=== PATIENT | male | born 1955 | race Caucasian/White ===

== ENCOUNTER 2018-08-14 19:08 | Emergency (ER) | payer BC, SELFPAY ==
[2018-08-14 19:16] VITALS: BP 142/65; PULSE 90; RESP 28; TEMP 36.6; O2SAT 96; BMI 45.4
--- NOTE | 2018-08-14 19:18 | ED.CHESTPAIN ---
HPI - Chest Pain General Chief Complaint: Chest Pain Stated Complaint: Chest Pain Time Seen by Provider: 08/14/18 19:18 Source: patient Mode of arrival: ambulatory Limitations: no limitations History of Present Illness HPI narrative: Patient is a 63-year-old male here for evaluation of epigastric chest discomfort and burning sensation off and on throughout today. He states that his chest discomfort was worsening as he went over bumps on the way here to the emergency department. Not worse with breathing. Is worse with palpation. Has not tried anything for the symptoms prior to arrival. Related Data Previous Rx's Medication Instructions Recorded cyclobenzaprine 10 mg PO Q8HP PRN #20 tab 05/03/17 hydrocodone-acetaminophen [[place]] 1 - 2 tab PO Q4H PRN #12 tab 05/03/17 prednisone 40 mg PO QDAY #8 tab 05/03/17 Allergies Allergy/AdvReac Type Severity Reaction Status Date / Time Penicillins [PENICILLINS] Allergy Unknown Verified 08/14/18 19:16 Review of Systems Constitutional Denies fever(s) and Denies headache(s) ENT Ears, Nose, Mouth, and Throat: Reports dizziness and Denies headache(s) Cardiovascular Reports chest pain, Denies rapid heart rate, Denies edema, Reports lightheadedness, Denies radiating jaw, neck or arm pain, Denies palpitations, Denies dyspnea and Denies dyspnea on exertion Respiratory Denies dyspnea and Denies dyspnea on exertion Gastrointestinal Gastrointestinal: Denies abdominal pain, Denies nausea and Denies vomiting Musculoskeletal Denies myalgias and Denies arthralgias Integumentary/Breasts Denies rash Neurologic Reports dizziness and Denies headache(s) Endocrine Denies palpitations Hematologic/Lymphatic Denies easy bleeding and Denies easy bruising [facility] Medical History Parkinsons disease (Acute) Social History Smoking Status: Current every day smoker Social History Smoking Status: Current every day smoker Exam Initial Vital Signs Initial Vital Signs: Vital Signs Temperature 97.9 F 08/14/18 19:16 Pulse Rate 90 08/14/18 19:16 Respiratory Rate 28 H 08/14/18 19:16 Blood Pressure 142/65 H 08/14/18 19:16 Pulse Oximetry 96 08/14/18 19:16 Const General: cooperative, healthy appearing, comfortable, well developed, well groomed and No acute distress Orientation: alert, awake and oriented x3 HENMT Head: normal to inspection and normocephalic Resp Effort & Inspection: normal respiratory effort Auscultation: clear to auscultation bilaterally Cardio Rate: regular rate Rhythm: regular rhythm Pulses: radial pulses present GI Inspection: non-distended Palpation: soft, No firm and tender (Epigastric region) Other: The tenderness to palpation in the epigastric region did reproduce the symptoms that brought him to the emergency department Skin Lesions: no lesions Rashes: no rashes Neuro General: alert, awake and oriented x3 Cognition: normal cognition Speech: speech normal Extrem General: normal to inspection and capillary refill normal Psych Appearance: grossly normal and well kempt Scores GCS [place] coma scale eye opening: Spontaneous [place] coma scale verbal response: Orientated [place] coma scale motor response: Obey commands [place] coma scale total score: 15 HEART Score Heart Score history: Slightly Suspicious Heart Score EKG: Non-Specific repolarization disturbance Heart Score Age: 45-64 years old Heart Score risk factors: No known risk factors Heart Score troponin: < or = to normal limit Heart Score Total: 2 Course Orders Ordered: Discontinued Medications Aspirin (Aspirin Chew) 324 mg PO NOW ONE Stop: 08/14/18 19:20 Last Admin: 08/14/18 19:41 Dose: 324 mg Al Hydrox/Mg Hydrox/Simethicone 20 ml/ Lidocaine HCl 15 ml 0 ml PO NOW ONE Stop: 08/14/18 19:53 Last Admin: 08/14/18 20:00 Dose: 35 ml Vital Signs - 8 hr 08/14/18 21:36 08/14/18 21:40 Pulse Rate 88 81 Respiratory Rate 21 18 Blood Pressure 121/67 Blood Pressure [Left Arm] 121/67 Pulse Oximetry 98 96 MDM - Chest Pain Lab Data Attestation: I reviewed the patient's lab results. Result diagrams: 08/14/18 19:30 08/14/18 19:30 Lab Results 08/14/18 08/14/18 08/14/18 Range/Units 19:30 19:30 19:30 WBC 10.6 (4.5-11.0) X10^3/uL RBC 4.79 (4.5-5.9) X10^6/uL Hgb 15.1 (13.5-17.5) g/dL Hct 44.6 (41-53) % MCV 93.2 (80-100) fL MCH 31.6 (26-34) PG MCHC 33.9 (30-36) % RDW 13.4 (11.6-14.8) % Plt Count 201 (150-400) X10^3/uL Neut % (Auto) 66.8 (50-75) % Lymph % (Auto) 24.4 L (25-40) % [place] % (Auto) 6.3 (3-14) % Eos % (Auto) 2.0 (2-4) % Baso % (Auto) 0.5 (0-2) % Neut # (Auto) 7100 H (2265-4816) /uL Lymph # (Auto) 2600 (4686-7222) /uL [place] # (Auto) 700 (0-900) /uL Eos # (Auto) 200 (0-450) /uL Baso # (Auto) 100 (0-100) /uL PT 10.8 (10.1-12.7) SECONDS INR 0.9 (0.9-1.3) APTT 35 (26.4-36.2) SECONDS Sodium 140 (137-145) mmol/L Potassium 4.0 (3.4-5.1) mmol/L Chloride 103 (98-107) mmol/L Carbon Dioxide 28 (22-32) mmol/L BUN 22 H (9-20) mg/dL Creatinine 0.90 (0.66-1.25) mg/dL Estimated GFR > 60.0 (>60) mL/min BUN/Creatinine Ratio 24.4 H (6-22) Glucose 108 (80-110) mg/dL Calcium 9.4 (8.4-10.2) mg/dL Total Bilirubin 0.9 (0.2-1.3) mg/dL AST 151 H (17-59) IU/L ALT 13 L (21-72) IU/L Alkaline Phosphatase 107 (38-126) U/L Total Creatine Kinase 212 H (55-170) U/L CK-MB (CK-2) 2.66 H (<2.37) ng/mL CK-MB (CK-2) Rel Index 1.3 L (1.5-5.0) % Troponin I < 0.012 (0.01-0.034) ng/mL Total Protein 8.0 (6.3-8.2) g/dL Albumin 4.8 (3.5-5.0) g/dL Globulin 3.2 (1.7-4.1) g/dL Albumin/Globulin Ratio 1.5 (1.0-2.8) Lipase 78 (23-300) U/L Imaging Data Chest x-ray: Radiologist's impression: [address] [address] XRay Report Signed Patient: Mychal German LMR#: [id number] : 7Acct:[id number] Age/Sex: 63 / MDate of Service: 08/14/18 Loc: ED Accession Number: [id number] Procedure: XR chest 1V Ordering Provider: Nithin Galo D.O. PROCEDURE: XR CHEST 1V INDICATIONS: chest pain TECHNIQUE: One view of the chest was acquired. COMPARISON: None. FINDINGS: Surgical changes and devices: None. Lungs and pleura: Lungs are clear. No pleural effusions or pneumothorax. Mediastinum: Mediastinal contours appear normal. Heart size is normal. Bones and chest wall: No suspicious bony lesions. Overlying soft tissues appear unremarkable. IMPRESSION: No evidence acute pulmonary process. Dictated by: Dejuan Landa M.D. on 08/14/2018 at 21:28 Approved by: Dejuan Landa M.D. on 08/14/2018 at 21:28 ECG Data Attestation: I personally reviewed and interpreted this ECG as follows: Prior ECG tracings: not available for review Interpretation: EKG with symptoms Sinus rhythm with 1st degree AV block Ventricular rate 87 Peer interval 211 milliseconds QRS duration 113 milliseconds Normal axis Nonspecific ST T wave changes EKG symptom-free Sinus rhythm Ventricular rate 85 Pure interval 206 milliseconds QRS duration 111 milliseconds Normal axis Nonspecific ST T wave changes Similar EKGs with and without symptoms MDM Narrative Medical decision making narrative: Patient stated that his symptoms were improving upon arrival here to the ER. They were reproducible with palpation. He did state that he did have improvement of symptoms after the GI cocktail. Patient had an unchanged EKG from when he was having symptoms upon arrival and when the symptoms completely resolved. Chest x-ray is unremarkable. Heart score 2. I did discuss the patient that we could obtain a 2nd troponin here in the emergency department to further risk stratify him with regard to cardiovascular disease. After this discussion with the patient's daughter and at bedside the patient decided he did not want to stay for the 2nd troponin. He did express understanding of the risks and benefits of that 2nd troponin and going home without it. Informed the patient that he should start taking an antacid such as Zantac. He is going to contact his primary doctor on Friday for follow-up. He was given strict return precautions and was informed he could return to the emergency department any time. With he and his expressed understanding agreement plan. Patient had a GCS of 15 and alert oriented x3 and in my opinion had the capacity to make decisions. Discharge Plan Departure Patient Disposition: Home Clinical Impression: Atypical chest pain Discharge Date/Time: 08/14/18 21:41 Interventions: ED Discharge Assessment Last Done: 08/14/18 21:40 Instructions: DI for Atypical Chest Pain Activity Restrictions/Additional Instructions: I recommend that you continue taking an aspirin on a daily basis. On Friday you needed contact your primary care provider to discuss the indications for a stress test. I also recommend you start taking Zantac on a daily basis. Return to the emergency department for any new or worsening symptoms. Prescriptions: No Action prednisone 20 MG tablet 40 mg PO QDAY Qty: 8 RF: 0 cyclobenzaprine 10 MG tablet 10 mg PO Q8HP PRNQty: 20 RF: 0 hydrocodone-acetaminophen [[place]] 5 MG/325 MG tablet 1 - 2 tab PO Q4H PRNQty: 12 RF: 0
[2018-08-14 19:35] LABS: Add Manual Diff / Slide Review NO; Basophils Absolute Auto 100 /uL (0-100); Basophils Percent Auto 0.5 % (0-2); Eosinophils Absolute Auto 200 /uL (0-450); Hematocrit 44.6 % (41-53); Hemoglobin 15.1 g/dL (13.5-17.5); Lymphocytes Absolute Auto 2600 /uL (1100-4500); Lymphocytes Percent Auto 24.4 % (25-40); Mean Corpuscular HGB Conc 33.9 % (30-36); Mean Corpuscular Hemoglobin 31.6 PG (26-34); Mean Corpuscular Volume 93.2 fL (80-100); Monocytes Absolute Auto 700 /uL (0-900); Monocytes Percent Auto 6.3 % (3-14); Neutrophils Absolute Auto 7100 /uL (1500-7000); Neutrophils Percent Auto 66.8 % (50-75); Platelet Count 201 X10^3/uL (150-400); Red Blood Cell Count 4.79 X10^6/uL (4.5-5.9); Red Cell Distribution Width 13.4 % (11.6-14.8); White Blood Cell Count 10.6 X10^3/uL (4.5-11.0)
[2018-08-14] MEDS: ASPIRIN 81 MG TAB 324 MG PO (19:41)
--- NOTE | 2018-08-14 19:44 | PC.NURSE ---
reports chest pain going away, no other change in quality of pain reported. Provider at bedside
[2018-08-14 19:46] LABS: INR 0.9 (0.9-1.3); Prothrombin Time 10.8 SECONDS (10.1-12.7)
[2018-08-14 19:48] LABS: PTT Partial Thromboplastin Tim 35 SECONDS (26.4-36.2)
[2018-08-14 19:53] LABS: Alanine Aminotransferase 13 IU/L (21-72); Albumin 4.8 g/dL (3.5-5.0); Albumin Globulin Ratio 1.5 (1.0-2.8); Alkaline Phosphatase 107 U/L (38-126); Aspartate Aminotransferase 151 IU/L (17-59); BUN Creatinine Ratio 24.4 (6-22); Bilirubin Total 0.9 mg/dL (0.2-1.3); Blood Urea Nitrogen 22 mg/dL (9-20); Calcium 9.4 mg/dL (8.4-10.2); Carbon Dioxide 28 mmol/L (22-32); Chloride 103 mmol/L (98-107); Creatine Kinase 212 U/L (55-170); Estimated Glomerular Filt Rate > 60.0 mL/min (>60); Globulin 3.2 g/dL (1.7-4.1); Glucose 108 mg/dL (80-110); Lipase 78 U/L (23-300); Sodium 140 mmol/L (137-145)
[2018-08-14] MEDS: MAG HYDROX/ALUMINUM/SIMETH SUS 20 ML, LIDOCAINE VISCOUS 2% 15 ML PO (20:00)
[2018-08-14 20:02] LABS: Troponin I < 0.012 ng/mL (0.01-0.034)
[2018-08-14 20:08] LABS: CKMB % Relative Index 1.3 % (1.5-5.0); Creatine Kinase MB 2.66 ng/mL (<2.37); HEMOLYSIS 18 (0-50)
--- NOTE | 2018-08-14 20:12 | PC.NURSE ---
Pt reports no change in quantity or quality of pain after gicocktail.
[2018-08-14 20:31] VITALS: BP 111/78; PULSE 88
--- NOTE | 2018-08-14 21:12 | PC.NURSE ---
pt refusing second troponin, wants to go home. Provider notified and aknowledged information
[2018-08-14 21:36] VITALS: BP 121/67; PULSE 88; RESP 21; O2SAT 98
[2018-08-14 21:40] VITALS: BP 121/67; PULSE 81; RESP 18; O2SAT 96
== END 2018-08-14 21:41 | disposition home or self-care (01) ==
PROVIDERS: Emergency Provider Emergency Medicine
DX: R07.89 Other chest pain (principal)
CPT/HCPCS: 36591; 71045; 80053; 82550; 82553; 83690; 84484; 85025; 85610; 85730; 93005; 99283; 99285

== ENCOUNTER → 2020-06-27 13:03 | Outpatient (CLI) | payer BC, SELFPAY ==
[2020-06-27] MEDS: COVID-19 VACC #1, MRNA(MOD) 100 MCG/0.5 ML VIAL IM (13:13)
== END ==
PROVIDERS: Visit Provider Internal Medicine
DX: Z23 Encounter for immunization (principal)
CPT/HCPCS: 0011A; 91301

== ENCOUNTER → 2020-07-26 08:00 | Outpatient (CLI) | payer BC, SELFPAY ==
[2020-07-26] MEDS: COVID-19 VACC #2, MRNA(MOD) 100 MCG/0.5 ML VIAL IM (08:17)
== END ==
PROVIDERS: Visit Provider Internal Medicine
DX: Z23 Encounter for immunization (principal)
CPT/HCPCS: 0012A; 91301

== ENCOUNTER 2021-11-24 18:12 | Observation (INO) | payer BC, SELFPAY ==
[2021-11-24 18:45] VITALS: BP 137/77; PULSE 118; RESP 24; TEMP 36.4; O2SAT 100
--- NOTE | 2021-11-24 19:03 | ED_ITS ---
HPI - Nausea/Vomiting/Diarrhea General Chief complaint: Nausea/Vomiting/Diarrhea Stated complaint: post op complications/unable to urinatte/vomitting Time Seen by Provider: 11/24/21 18:57 Source: patient and family Mode of arrival: Ambulatory History of Present Illness HPI Narrative: Patient is a 66-year-old male. Has a history of atrial fibrillation and also Parkinson's disease. Is on anticoagulation. 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 This was done at the [facility]. He was discharged home yesterday. His postoperative course was complicated by a bowel obstruction that was treated nonoperatively with an NG-tube. After returning home yesterday he started to have nausea and vomiting which has continued throughout today. He also states he feels like he is not urinating. He feels like his abdomen is distended. No fevers. No specific change in abdominal discomfort. Related Data Home Medications Medication Instructions Recorded Confirmed amlodipine 2.5 mg tablet 2.5 mg PO QPM 11/25/21 11/25/21 apixaban 5 mg tablet (Eliquis) mg PO ONCE PM 11/25/21 atorvastatin 40 mg tablet 40 mg PO BEDTIME 11/25/21 11/25/21 carbidopa 25 mg-levodopa 100 mg 1.5 tab PO QID 11/25/21 11/25/21 tablet carbidopa ER 50 mg-levodopa 200 mg 1 tab PO BEDTIME 11/25/21 11/25/21 tablet,extended release entacapone 200 mg tablet 200 mg PO 5XD 11/25/21 11/25/21 lisinopril 20 mg tablet 20 mg PO BEDTIME 11/25/21 11/25/21 omeprazole 25 mg PO 2XD 11/25/21 11/25/21 pramipexole 0.25 mg tablet 0.25 mg PO 4XD 11/25/21 11/25/21 pramipexole 1.5 mg tablet 0.5 mg PO BEDTIME 11/25/21 11/25/21 rasagiline 1 mg tablet 1 mg PO DAILY 11/25/21 11/25/21 sertraline 25 mg tablet 25 mg PO BEDTIME 11/25/21 11/25/21 Allergies Allergy/AdvReac Type Severity Reaction Status Date / Time Penicillins [PENICILLINS] Allergy Unknown Verified 11/24/21 18:47 Review of Systems Review of Systems ROS Unobtainable: All systems reviewed & are unremarkable except as noted in HPI and below Patient History Medical History Atrial fibrillation Parkinsons disease Social History household members: spouse Smoking Status: Former smoker Smoking Status: Former smoker tobacco type: cigarettes alcohol intake frequency: 0-2 drinks per day Substance Use Type: does not use Exam Initial Vital Signs Initial Vital Signs: Vital Signs Temperature 97.5 F L 11/24/21 18:45 Pulse Rate 118 H 11/24/21 18:45 Respiratory Rate 24 11/24/21 18:45 Blood Pressure 137/77 11/24/21 18:45 Pulse Oximetry 100 11/24/21 18:45 Oxygen Delivery Method 11/24/21 18:45 Const General: cooperative and comfortable HENMT Head: normal to inspection and normocephalic Eyes General: Yes appearance normal, both eyes and all related structures Chest Chest: normal inspection of the chest Resp Effort & Inspection: normal respiratory effort Auscultation: clear to auscultation bilaterally Cardio Rate: tachycardic Rhythm: abnormal rhythm GI Inspection: distended Palpation: No firm, No guarding and tender Skin Other: Surgical scar left-sided abdomen that appears well without signs of infection. Neuro General: patient alert, patient awake, patient oriented x3 and moves all extremities Extrem General: normal to inspection and capillary refill normal Psych Appearance: grossly normal and well kempt Course Orders Ordered: ED Orders 11/24/21 19:04 CT abdomen pelvis w con Stat 11/24/21 19:15 Complete Blood Count AUTO DIFF Stat Comprehensive Metabolic Panel Stat Lactate (Lactic Acid) Stat Lipase Stat Procalcitonin Stat 11/24/21 19:17 COVID19 -Nasal RAPID/Pre-Proc Stat 11/24/21 19:53 Blood Culture Stat Acetaminophen (Acetaminophen 325 Mg Tablet) 650 mg PO Q6HR PRN PRN Reason: Fever/Mild Pain (1-3) Hydromorphone HCl (Hydromorphone 0.5 Mg Inj) 0.5 mg IV Q4H PRN PRN Reason: Breakthrough pain only (8-10) Sodium Chloride (Normal Saline 0.9%) 1,000 mls @ 100 mls/hr IV CONT AKILA Last Admin: 11/25/21 01:53 Dose: 100 mls/hr Documented By: MS Metronidazole (Flagyl) 500 mg in 100 mls @ 100 mls/hr IV Q8H [facility] Stop: 11/28/21 23:29 Last Admin: 11/25/21 02:41 Dose: 100 mls/hr Documented By: MS Cefazolin Sodium/Dextrose (Ancef) 100 mls @ 200 mls/hr IV Q8H [facility] Stop: 11/25/21 08:29 Last Infusion: 11/25/21 02:25 Dose: 0 mls/hr Documented By: Admin: 11/25/21 01:55 Dose: 200 mls/hr Documented By: MS Ketorolac Tromethamine (Ketorolac 30 Mg/Ml Vial) 30 mg IV Q6H PRN PRN Reason: Pain, Moderate (4-6) Stop: 11/27/21 23:14 Naloxone HCl (Naloxone 0.4 Mg/Ml Vial) 0.1 mg IV Q2MIN PRN PRN Reason: Opiate Reversal Ondansetron HCl (Ondansetron 4 Mg/2 Ml Inj) 4 mg IV Q4HR PRN PRN Reason: Nausea And Vomiting Pantoprazole Sodium (Pantoprazole 40 Mg Vial) 20 mg IV BID AKILA Discontinued Medications Sodium Chloride (Normal Saline 0.9%) 1,000 mls @ 500 mls/hr IV BOLUS ONE Stop: 11/24/21 21:02 Last Infusion: 11/24/21 21:30 Dose: 0 mls/hr Documented By: Admin: 11/24/21 19:11 Dose: 500 mls/hr Documented By: CANDE Cefazolin Sodium/Dextrose (Ancef) 100 mls @ 200 mls/hr IV Q8H [facility] Stop: 11/25/21 07:47 Last Admin: 11/24/21 23:36 Dose: Not Given Documented By: CANDE Ondansetron HCl (Ondansetron 4 Mg/2 Ml Inj) 4 mg IV NOW ONE Stop: 11/24/21 18:50 Last Admin: 11/24/21 19:10 Dose: 4 mg Documented By: CANDE Pantoprazole Sodium (Pantoprazole 40 Mg Vial) 40 mg IV NOW ONE Stop: 11/24/21 23:15 Last Admin: 11/25/21 01:55 Dose: 40 mg Documented By: MS Vital Signs Vital signs: Vital Signs - 8 hr 11/24/21 20:09 Pulse Rate 110 H Respiratory Rate 22 Blood Pressure 123/73 Pulse Oximetry 96 Oxygen Delivery Method Room Air MDM - Nausea/Vomiting/Diarrhea Lab Data Attestation: I reviewed the patient's lab results. Result diagrams: 11/24/21 19:15 11/24/21 19:15 Labs: Lab Results 11/24/21 11/24/21 11/24/21 Range/Units 19:15 19:15 19:15 WBC 8.8 (4.5-11.0) X10^3/uL RBC 4.22 L (4.5-5.9) X10^6/uL Hgb 13.0 L (13.5-17.5) g/dL Hct 38.2 L (41-53) % MCV 90.6 (80-100) fL MCH 30.8 (26-34) PG MCHC 34.0 (30-36) % RDW 13.8 (11.6-14.8) % Plt Count 226 (150-400) X10^3/uL Neut % (Auto) 66.9 (50-75) % Lymph % (Auto) 17.8 L (25-40) % [place] % (Auto) 8.9 (3-14) % Eos % (Auto) 5.8 H (2-4) % Baso % (Auto) 0.6 (0-2) % Neut # (Auto) 5900 (4338-0064) /uL Lymph # (Auto) 1600 (1789-6473) /uL [place] # (Auto) 800 (0-900) /uL Eos # (Auto) 500 H (0-450) /uL Baso # (Auto) 100 (0-100) /uL Sodium 137 (137-145) mmol/L Potassium 3.9 (3.4-5.1) mmol/L Chloride 101 (98-107) mmol/L Carbon Dioxide 24 (22-32) mmol/L BUN 15 (9-20) mg/dL Creatinine 1.11 (0.66-1.25) mg/dL Estimated GFR > 60 (>60) mL/min BUN/Creatinine Ratio 13.5 (6-22) Glucose 117 H (80-110) mg/dL Lactate 0.9 (0.7-2.1) mmol/L Calcium 8.3 L (8.4-10.2) mg/dL Magnesium (1.6-2.3) mg/dL Total Bilirubin 0.5 (0.2-1.3) mg/dL AST 137 H (17-59) IU/L ALT 53 H (<50) IU/L Alkaline Phosphatase 98 (38-126) U/L Total Protein 7.4 (6.3-8.2) g/dL Albumin 3.9 (3.5-5.0) g/dL Globulin 3.5 (1.7-4.1) g/dL Albumin/Globulin Ratio 1.1 (1.0-2.8) Lipase 121 (23-300) U/L Procalcitonin (<0.5) ng/mL SARS-CoV-2 (PCR) (Negative) 11/24/21 11/24/21 11/24/21 Range/Units 19:15 19:15 19:17 WBC (4.5-11.0) X10^3/uL RBC (4.5-5.9) X10^6/uL Hgb (13.5-17.5) g/dL Hct (41-53) % MCV (80-100) fL MCH (26-34) PG MCHC (30-36) % RDW (11.6-14.8) % Plt Count (150-400) X10^3/uL Neut % (Auto) (50-75) % Lymph % (Auto) (25-40) % [place] % (Auto) (3-14) % Eos % (Auto) (2-4) % Baso % (Auto) (0-2) % Neut # (Auto) (9051-5815) /uL Lymph # (Auto) (7651-5657) /uL [place] # (Auto) (0-900) /uL Eos # (Auto) (0-450) /uL Baso # (Auto) (0-100) /uL Sodium (137-145) mmol/L Potassium (3.4-5.1) mmol/L Chloride (98-107) mmol/L Carbon Dioxide (22-32) mmol/L BUN (9-20) mg/dL Creatinine (0.66-1.25) mg/dL Estimated GFR (>60) mL/min BUN/Creatinine Ratio (6-22) Glucose (80-110) mg/dL Lactate (0.7-2.1) mmol/L Calcium (8.4-10.2) mg/dL Magnesium 1.9 (1.6-2.3) mg/dL Total Bilirubin (0.2-1.3) mg/dL AST (17-59) IU/L ALT (<50) IU/L Alkaline Phosphatase (38-126) U/L Total Protein (6.3-8.2) g/dL Albumin (3.5-5.0) g/dL Globulin (1.7-4.1) g/dL Albumin/Globulin Ratio (1.0-2.8) Lipase (23-300) U/L Procalcitonin 0.12 (<0.5) ng/mL SARS-CoV-2 (PCR) Negative (Negative) Imaging Data CT scan - abdomen/pelvis: Radiologist's Impression: [address] [address] [address] Scan Report Signed Patient: Mychal German MR#: [id number] : 1955 Acct:[id number] Age/Sex: 66 / M Date of Service: 11/24/21 Loc: ED Accession Number: [id number] ?? Procedure: CT abdomen pelvis w con Ordering Provider: Nithin Galo D.O. PROCEDURE:? CT ABDOMEN PELVIS W CON ? INDICATIONS:? hx of L nephrectomy and obstruction now with bloating ? TECHNIQUE:? After the administration of IV contrast, axial sections were acquired from the lung bases to the pubic symphysis.? Coronal and sagittal reformats were performed.? For r adiation dose reduction, the following was used:? automated exposure control, adjustment of mA and/or kV according to patient size. ? COMPARISON:? [facility], CT, CT IVP, 10/31/2021, 1:04.? [facility], CT, CT ABDOMEN RENAL PROTOCOL, 11/12/2021, 14:21. ? FINDINGS:? Image quality:? Excellent.? Evaluation of the solid parenchymal organs is limited without IV contrast.? ? Lung bases:? Small left pleural effusion, new.? Bibasilar atelectasis. Heart:? Aortic valvular calcifications.? Coronary artery calcifications. ? ? ABDOMEN: Liver:? A few hypodensities which are difficult to further characterize given their small size, unchanged. Gallbladder:? Not distended.? Layering gallstones.? Stones in the cystic duct.? ? Biliary ducts:? Unremarkable.? ? Pancreas:? Unremarkable.? ? Spleen:? Unremarkable.? ? Adrenal Glands:? Unremarkable.? ? Kidneys and Ureters:? Left nephrectomy.? Low-density fluid in the left nephrectomy bed.? No right hydronephrosis.? Uniform enhancement. ? Stomach and Bowel:? Dilated loops of small bowel.? Small bowel air-fluid levels.? Transition point suspected in the left abdomen, ().? Stomach is distended.? The appendix is not dilated.? Diverticulosis. Peritoneum:? No pneumoperitoneum.? Small volume of ascites. ? Ventral Wall:? Upper abdominal ventral scar. Abdominal Nodes:? No retroperitoneal or mesenteric adenopathy by size criteria.? Vessels:? Aorta and inferior vena cava are normal in size.? Mild plaque.? ? PELVIS: Pelvic Organs:? Unremarkable.? ? Bladder:? Not distended. Pelvic Nodes: No enlarged lymph nodes.? Miscellaneous:? Possible left inguinal hernia. ? Bones:? No suspicious lesion.? DDD. ? ? IMPRESSION:? 1. Small bowel obstruction.? Suspect transition point in the left abdomen. ? 2. Left nephrectomy.? Small low-density fluid collection in the left nephrectomy bed.? ? 3. Small left pleural effusion. ? 4. Cholelithiasis. ? Results called to [facility] emergency room and conveyed to nurse at time of dictation. ? ? Dictated by: Carlo Don M.D. on 11/24/2021 at 20:53 ? ? Approved by: Carlo Don M.D. on 11/24/2021 at 21:05?? ECG Data Attestation: I personally reviewed and interpreted this ECG as follows: Interpretation: Atrial fibrillation Ventricular rate wanted to Normal axis Normal QRS LVH Nonspecific ST T wave changes MDM Narrative Medical decision making narrative: CT scan shows bowel obstruction. Patient is in AFib but is relatively rate controlled. Labs are unremarkable. Patient not retaining urine. Did discuss the case with Urology at the [facility] who was the discharging service yesterday. They did accept the patient in transfer been ask that we talk with our general surgeon locally to see if they are willing to manage the patient locally to try to avoid a transfer. Did discuss the case with Dr. Xiong who is on-call for General surgery who was willing to consult on the patient locally knowing that if the patient worsens or does require surgery that a transfer to the [facility] will be necessary. He asked that the patient be admitted to the medicine service. Discussed the case with MIGUEL Lyons the [facility] provider who will admit. Had this discussion with the patient and his family. They understand the findings of the CT scan. They understand admission here to the hospital with potentially needing transfer. The patient was able to tolerate his oral Parkinson's medication. Will hold on an NG tube for now LEs the patient starts to vomit. Who will admit for further evaluation treatment. Patient is nontoxic. No indication of infection. Will hold on any antibiotics for now. Discharge Plan Departure Patient Disposition: Admitted as Observation Clinical Impression: SBO (small bowel obstruction), Parkinson's disease, Atrial fibrillation Admit Date/Time: 11/24/21 22:43 Admit Provider: Susan Lyons
--- NOTE | 2021-11-24 19:04 | DI.CT.S_ITS ---
PROCEDURE: CT ABDOMEN PELVIS W CON INDICATIONS: hx of L nephrectomy and obstruction now with bloating TECHNIQUE: After the administration of IV contrast, axial sections were acquired from the lung bases to the pubic symphysis. Coronal and sagittal reformats were performed. For radiation dose reduction, the following was used: automated exposure control, adjustment of mA and/or kV according to patient size. COMPARISON: [facility], CT, CT IVP, 10/31/2021, 1:04. [facility], CT, CT ABDOMEN RENAL PROTOCOL, 11/12/2021, 14:21. FINDINGS: Image quality: Excellent. Evaluation of the solid parenchymal organs is limited without IV contrast. Lung bases: Small left pleural effusion, new. Bibasilar atelectasis. Heart: Aortic valvular calcifications. Coronary artery calcifications. ABDOMEN: Liver: A few hypodensities which are difficult to further characterize given their small size, unchanged. Gallbladder: Not distended. Layering gallstones. Stones in the cystic duct. Biliary ducts: Unremarkable. Pancreas: Unremarkable. Spleen: Unremarkable. Adrenal Glands: Unremarkable. Kidneys and Ureters: Left nephrectomy. Low-density fluid in the left nephrectomy bed. No right hydronephrosis. Uniform enhancement. Stomach and Bowel: Dilated loops of small bowel. Small bowel air-fluid levels. Transition point suspected in the left abdomen, (). Stomach is distended. The appendix is not dilated. Diverticulosis. Peritoneum: No pneumoperitoneum. Small volume of ascites. Ventral Wall: Upper abdominal ventral scar. Abdominal Nodes: No retroperitoneal or mesenteric adenopathy by size criteria. Vessels: Aorta and inferior vena cava are normal in size. Mild plaque. PELVIS: Pelvic Organs: Unremarkable. Bladder: Not distended. Pelvic Nodes: No enlarged lymph nodes. Miscellaneous: Possible left inguinal hernia. Bones: No suspicious lesion. DDD. IMPRESSION: 1. Small bowel obstruction. Suspect transition point in the left abdomen. 2. Left nephrectomy. Small low-density fluid collection in the left nephrectomy bed. 3. Small left pleural effusion. 4. Cholelithiasis. Results called to [facility] emergency room and conveyed to nurse at time of dictation. Dictated by: Carlo Don M.D. on 11/24/2021 at 20:53 Approved by: Carlo Don M.D. on 11/24/2021 at 21:05
[2021-11-24] MEDS: ONDANSETRON 4 MG/2 ML INJ IV (19:10)
[2021-11-24] MEDS: SODIUM CHLORIDE 0.9% 1,000 ML 500 ML IV (19:11)
[2021-11-24 19:34] LABS: Add Manual Diff / Slide Review NO; Basophils Absolute Auto 100 /uL (0-100); Basophils Percent Auto 0.6 % (0-2); Eosinophils Absolute Auto 500 /uL (0-450); Eosinophils Percent Auto 5.8 % (2-4); Hematocrit 38.2 % (41-53); Lymphocytes Absolute Auto 1600 /uL (1100-4500); Lymphocytes Percent Auto 17.8 % (25-40); Mean Corpuscular Hemoglobin 30.8 PG (26-34); Mean Corpuscular Volume 90.6 fL (80-100); Monocytes Absolute Auto 800 /uL (0-900); Monocytes Percent Auto 8.9 % (3-14); Neutrophils Absolute Auto 5900 /uL (1500-7000); Neutrophils Percent Auto 66.9 % (50-75); Platelet Count 226 X10^3/uL (150-400); Red Blood Cell Count 4.22 X10^6/uL (4.5-5.9); Red Cell Distribution Width 13.8 % (11.6-14.8); White Blood Cell Count 8.8 X10^3/uL (4.5-11.0)
[2021-11-24 19:49] LABS: COVID19 -Nasal RAPID Negative (Negative)
[2021-11-24 19:53] LABS: Lactate (Lactic Acid) 0.9 mmol/L (0.7-2.1)
[2021-11-24 19:54] LABS: Alanine Aminotransferase 53 IU/L (<50); Albumin 3.9 g/dL (3.5-5.0); Albumin Globulin Ratio 1.1 (1.0-2.8); Alkaline Phosphatase 98 U/L (38-126); Aspartate Aminotransferase 137 IU/L (17-59); BUN Creatinine Ratio 13.5 (6-22); Bilirubin Total 0.5 mg/dL (0.2-1.3); Blood Urea Nitrogen 15 mg/dL (9-20); Calcium 8.3 mg/dL (8.4-10.2); Carbon Dioxide 24 mmol/L (22-32); Chloride 101 mmol/L (98-107); Estimated Glomerular Filt Rate > 60 mL/min (>60); Globulin 3.5 g/dL (1.7-4.1); Glucose 117 mg/dL (80-110); HEMOLYSIS < 15 (0-50); Lipase 121 U/L (23-300); Potassium 3.9 mmol/L (3.4-5.1); Sodium 137 mmol/L (137-145); Total Protein 7.4 g/dL (6.3-8.2)
[2021-11-24 20:09] VITALS: BP 123/73; PULSE 110; RESP 22; O2SAT 96
[2021-11-24 20:13] LABS: Procalcitonin 0.12 ng/mL (<0.5)
[2021-11-24 23:49] LABS: Magnesium 1.9 mg/dL (1.6-2.3)
[2021-11-25] VITALS (7 sets, daily range): BP systolic 90–121; BP diastolic 49–68; PULSE 68–107; RESP 16–22; TEMP 36.1–36.7; O2SAT 91–100; BMI 43.3
[2021-11-25] MEDS: SODIUM CHLORIDE 0.9% 1,000 ML 100 ML IV (01:53)
[2021-11-25] MEDS: PANTOPRAZOLE 40 MG VIAL IV (01:55)
[2021-11-25] MEDS: CEFAZOLIN 2 GM/100 ML PREMIX 100 ML IV ×2 (01:55→09:04)
[2021-11-25] MEDS: metroNIDAZOLE 500 MG/100 ML PIGGYBACK 100 MG IV ×2 (02:41→07:57)
--- NOTE | 2021-11-25 03:59 | PM.HP.1 ---
History of Present Illness History of Present Illness Date Patient Seen: 11/24/21 Time Patient Seen: 23:23 Chief complaint: post op complications/unable to urinatte/vomitting Narrative: Mychal German is a 66-year-old male.? Has a history of atrial fibrillation, Parkinson's disease, HTN, renal mass left, recent radical nephrectomy, aortic stenosis, and HLD on chronic anticoag Eliquis.? Approximately 10 days ago had a left-sided nephrectomy secondary to a tumor on his left kidney at the [facility]. He had postoperative complication of a bowel obstruction that was treated non operatively with an NG tube. He was discharged home yesterday.?After returning home yesterday he started to have nausea and vomiting which has continued throughout today, he reports that his abd became severely distended, and he felt as if he was not urinating.? No specific change in abdominal discomfort, patient states that he has pain along the large vertical incision across his upper abdomen it is mostly itchy but has had no drainage warmth redness or swelling along incision site, his pain is 3/10 and has improved with pain management in the ED. patient notes that the vomiting ceased with medication in the ED, and the patient was able to take his oral medications without difficulty and has not vomited them up since. As they were getting ready to transport him upstairs for admit the patient had a large bowel movement, then immediately upon being placed in the bed in his room he was incontinent of stool a 2nd time. The patient states that his abdomen as decreased in size greatly. The patient denies chest pain, shortness of breath, no further nausea or vomiting, fever, body aches, chills, denies blood in his stool, melena, hematuria, denies urinary symptoms, and feels overall that hisrecovery from surgery is going well. Upon admit patient is hemodynamically stable resting comfortably in bed temp 97.5?, BP 123/73, HR 110, RR 22, O2 saturation 96% on room air. RBC 4.2 to, H&H 13/38.2, chemistries were unremarkable lipase procalcitonin and lactate were all unremarkable, AST 137 ALT 53, calcium 8.3. Abd/Pelvis CT demonstrated a small bowel obstruction, suspected to be at the transition point in the left abdomen. a left nephrectomy, with a small low-density fluid collection in the left nephrectomy bed, a small left pleural effusion, cholelithiasis. Per Dr. Galo ED :Medical decision making narrative: CT scan shows bowel obstruction.? Patient is in AFib but is relatively rate controlled.? Labs are unremarkable.? Patient not retaining urine.? Did discuss the case with Urology at the [facility] who was the discharging service yesterday.? They did accept the patient in transfer been ask that we talk with our general surgeon locally to see if they are willing to manage the patient locally to try to avoid a transfer.? Did discuss the case with Dr. Xiong who is on-call for General surgery who was willing to consult on the patient locally knowing that if the patient worsens or does require surgery that a transfer to the [facility] will be necessary.? He asked that the patient be admitted to the medicine service.? Patient admitted for small-bowel obstruction, with mild anemia. Patient History Medical History (Updated 11/25/21 @ 04:31 by JHONNY Hadley) Aortic stenosis Atrial fibrillation BMI 45.0-49.9, adult Essential hypertension Hyperlipidemia Left renal mass Parkinsons disease Surgical History (Updated 11/25/21 @ 04:31 by JHONNY Hadley) History of left radical nephrectomy History of right hip replacement Family & Social History Family History (Updated 11/25/21 @ 04:32 by SIMON Hadley-KEMI) Mother Congestive heart failure Sister Cancer Brother AIDS Social History: household members spouse, works at the [employer] Prior Living Arrangements RV 5th wheel Safety & Behavioral: Feels Safe in Current Yes Environment Been Physically Hurt or No Threatened By a Person Tobacco & Substance use: Tobacco type cigarettes been smoking for 22 years quit 2 weeks ago when found to have a renal mass Smoking Status Former smoker alcohol intake frequency 0-2 drinks per day- rum and Cokes daily Substance Use Type does not use Meds Home Medications and Allergies Home Medications Medication Instructions Recorded Confirmed Type amlodipine 2.5 mg tablet 2.5 mg PO QPM 11/25/21 11/25/21 History apixaban 5 mg tablet (Eliquis) mg PO ONCE PM 11/25/21 History atorvastatin 40 mg tablet 40 mg PO BEDTIME 11/25/21 11/25/21 History carbidopa 25 mg-levodopa 100 mg 1.5 tab PO QID 11/25/21 11/25/21 History tablet carbidopa ER 50 mg-levodopa 200 mg 1 tab PO BEDTIME 11/25/21 11/25/21 History tablet,extended release entacapone 200 mg tablet 200 mg PO 5XD 11/25/21 11/25/21 History lisinopril 20 mg tablet 20 mg PO BEDTIME 11/25/21 11/25/21 History omeprazole 25 mg PO 2XD 11/25/21 11/25/21 History pramipexole 0.25 mg tablet 0.25 mg PO 4XD 11/25/21 11/25/21 History pramipexole 1.5 mg tablet 0.5 mg PO BEDTIME 11/25/21 11/25/21 History rasagiline 1 mg tablet 1 mg PO DAILY 11/25/21 11/25/21 History sertraline 25 mg tablet 25 mg PO BEDTIME 11/25/21 11/25/21 History Allergies Allergy/AdvReac Type Severity Reaction Status Date / Time Penicillins [PENICILLINS] Allergy Unknown Verified 11/24/21 18:47 Review of Systems Review of Systems Narrative: All 12 point systems reviewed with the patient and are negative except otherwise documented. Exam Vital Signs (past 8 hours): - 11/24/21 20:09 11/25/21 00:15 11/25/21 03:30 Temperature 97.5 F L Pulse Rate 110 H 107 H Respiratory Rate 22 18 Blood Pressure 123/73 117/68 Pulse Oximetry 96 100 Oxygen Delivery Method Room Air Room Air Oxygen Flow Rate 0 Oxygen Delivery Method Room Air Oxygen Flow Rate 0 Narrative Exam Narrative: General: Patient is a delightful well-developed, well-nourished morbidly obese male in no distress at this time. HEENT: Normocephalic, atraumatic, extraocular muscles intact, oral pharynx is clear and mucous membranes are moist. Neck is supple and symmetric, trachea is midline, no adenopathy, no thyroid enlargement, nontender, no masses palpated. Negative for JVD Chest: Normal AP diameter and contour without kyphoscoliosis, no nasal flaring, retractions, or tachypneic labored Lungs: Auscultation of all lung argueta are clear without adventitious sounds, wheezes, rhonchi, or rales. Cardio: Irregular rate and rhythm Abdomen: Soft distended, with a well healing arching surgical incision from the right upper quad to the left upper quad, steri strips in place, no signs of infection, closed no drainage noted, significant bruising along the lower abd. Bowel sounds are normal active & present in all 4 quadrants. Musculoskeletal: Muscle strength and tone are equal within normal limits, no deformity, crepitus, effusions, cyanosis, clubbing or edema present. Full range of motion intact radial and pedal pulses are normal. Skin: Warm dry and intact without rashes, ulcerations or petechiae. Neuro: Alert and orientated x3, strength is +5/5 in all extremities, sensation to touch intact, no gross deficits noted of cranial nerves. Psych: Patient has a well-kept appearance, appropriate affect, mental status attitude thought context and judgment are appropriate for age. Objective Labs Result Diagrams: 11/24/21 19:15 11/24/21 19:15 Labs: Laboratory Results - last 24 hr 11/24/21 11/24/21 11/24/21 19:15 19:15 19:15 WBC 8.8 RBC 4.22 L Hgb 13.0 L Hct 38.2 L MCV 90.6 MCH 30.8 MCHC 34.0 RDW 13.8 Plt Count 226 Neut % (Auto) 66.9 Lymph % (Auto) 17.8 L Mcculloch % (Auto) 8.9 Eos % (Auto) 5.8 H Baso % (Auto) 0.6 Neut # (Auto) 5900 Lymph # (Auto) 1600 Mcculloch # (Auto) 800 Eos # (Auto) 500 H Baso # (Auto) 100 Sodium 137 Potassium 3.9 Chloride 101 Carbon Dioxide 24 BUN 15 Creatinine 1.11 Estimated GFR > 60 BUN/Creatinine Ratio 13.5 Glucose 117 H Lactate 0.9 Calcium 8.3 L Magnesium Total Bilirubin 0.5 AST 137 H ALT 53 H Alkaline Phosphatase 98 Total Protein 7.4 Albumin 3.9 Globulin 3.5 Albumin/Globulin Ratio 1.1 Lipase 121 Procalcitonin SARS-CoV-2 (PCR) 11/24/21 11/24/21 11/24/21 19:15 19:15 19:17 WBC RBC Hgb Hct MCV MCH MCHC RDW Plt Count Neut % (Auto) Lymph % (Auto) Mcculloch % (Auto) Eos % (Auto) Baso % (Auto) Neut # (Auto) Lymph # (Auto) Mcculloch # (Auto) Eos # (Auto) Baso # (Auto) Sodium Potassium Chloride Carbon Dioxide BUN Creatinine Estimated GFR BUN/Creatinine Ratio Glucose Lactate Calcium Magnesium 1.9 Total Bilirubin AST ALT Alkaline Phosphatase Total Protein Albumin Globulin Albumin/Globulin Ratio Lipase Procalcitonin 0.12 SARS-CoV-2 (PCR) Negative Assessment & Plan Assessment & Plan narrative: Mychal German is a 66-year-old male.? Has a history of atrial fibrillation, Parkinson's disease, HTN, renal mass left, recent radical nephrectomy, aortic stenosis, and HLD on chronic anticoag Eliquis who had a radical left nephrectomy due to a 9 cm renal mass at the [facility] 10 days ago, who then suffered from postoperative small-bowel obstruction that was resolved with non operative intervention patient was released home yesterday, came into the ED today due to nausea and vomiting abdominal distension and has been admitted for small bowel obstruction, suspected to be at the transition point in the left abdomen found on CT. Dr. Xiong to consult in the Am. 1. Small-bowel obstruction, acute, present on admission likely secondary complication to S/P radical left nephrectomy (11/15/21)as a result of left renal mass. -Dr. Xiong consult -patient is stable, patient had a large bowel movement in the ED just before leaving the department and has been incontinent of stool upon admit to the floor, normoactive bowel sounds present in all 4 quadrants. -NPO -because patient is s/p left radical nephrectomy 10 days ago, had SBO s/p complication- empiric antibiotic coverage for enterococci, enteric, gram negative bacilli, and anaerobes -Cefazolin 2gm Q8Hrs, Metronidazole 500mg -NS @100cc/hr over night -Bld cultures, U/A -Monitor for sepsis 2. Anemia, Mild, acute, present on admission -likely blood loss anemia secondary to surgical procedure. -H&H 13/38.2, RBC 4.2 -11/22/2021 HGB 12.8, RBC 4.22, no HCT recorded -I reviewed [facility] records for hospitalization 11/15-11/23/2021 hospitalization for left renal mass and radical left nephrectomy -Hemoccult as needed -patient restarted Eliquis approximately 48 hours ago, will hold at this time. -Monitor for post operative/GI Bleed -One dose IV protonix 40mg 3. Atrial fibrillation, chronic, on chronic anticoagulation, present on admission-improved -patient was slightly tachycardic upon admit HR 110 in AFib-controlled well with medication -monitored on telemedicine Continue amlodipine, holding Eliquis 4. Essential hypertension, chronic, present on admission -admitting BP 123/73 -continue amlodipine and lisinopril 5. Parkinson's disease, chronic, present on admission -continue carbidopa, Entacapone, Pramipexole, Rasagiline, sertraline 6. Hyperlipidemia, chronic, present on admission -continue Lipitor 7. GERD, chronic, present on admission -continue omeprazole 8. Morbid obesity as evidence by BMI of 43.3, acute on chronic, present on admission -dietary consult deferred at this time due to small-bowel obstruction. Code status:Full Surrogate decision maker: Spouse Mary HEARD PCR:Negative DVT/VTE prophylaxis:Holding eliquis do to anemia/possible GI bleed, Scd's only Disposition: Patient admitted for small-bowel obstruction which may require surgical intervention Dr. Xiong to consult, expected length of stay less than 2 midnights I have utilized all available immediate resources to obtain, update, or review the patient's current medications. I confirmed that the patient's advanced care plan is present, Code status is documented and/or surrogate decision maker is listed in the patient's medical record. Time Spent With Patient Critical Care time: I spent a total of [] minutes of critical care time on this patient's care today; this time is exclusive of procedural time. Quality VTE Deep Vein Thrombosis/Pulmonary Embolism Present on Admission: No
[2021-11-25] MEDS: PRAMIPEXOLE 0.25 MG TABLET PO ×3 (05:39→14:08)
[2021-11-25] MEDS: CARBIDOPA-LEVODOPA 25/100 TABLET 1.5 EACH PO ×3 (05:39→14:08)
[2021-11-25] MEDS: PANTOPRAZOLE DR 20 MG TABLET PO (05:39)
[2021-11-25 06:15] LABS: INR 1.3 (0.9-1.3); Prothrombin Time 15.2 SECONDS (10.1-12.7)
[2021-11-25 06:16] LABS: Add Manual Diff / Slide Review NO; Basophils Absolute Auto 0 /uL (0-100); Basophils Percent Auto 0.3 % (0-2); Eosinophils Absolute Auto 400 /uL (0-450); Eosinophils Percent Auto 3.8 % (2-4); Hematocrit 37.9 % (41-53); Hemoglobin 12.5 g/dL (13.5-17.5); Lymphocytes Absolute Auto 1200 /uL (1100-4500); Lymphocytes Percent Auto 11.6 % (25-40); Mean Corpuscular Hemoglobin 30.2 PG (26-34); Mean Corpuscular Volume 91.5 fL (80-100); Monocytes Absolute Auto 700 /uL (0-900); Monocytes Percent Auto 7.1 % (3-14); Neutrophils Absolute Auto 7700 /uL (1500-7000); Neutrophils Percent Auto 77.2 % (50-75); Platelet Count 226 X10^3/uL (150-400); Red Blood Cell Count 4.14 X10^6/uL (4.5-5.9)
[2021-11-25 06:21] LABS: BUN Creatinine Ratio 12.5 (6-22); Blood Urea Nitrogen 13 mg/dL (9-20); Carbon Dioxide 22 mmol/L (22-32); Chloride 106 mmol/L (98-107); Estimated Glomerular Filt Rate > 60 mL/min (>60); Glucose 101 mg/dL (80-110); HEMOLYSIS < 15 (0-50); Magnesium 1.8 mg/dL (1.6-2.3); Sodium 137 mmol/L (137-145)
[2021-11-25 06:29] LABS: NT-proBNP (BNP-Adult 18+) 1440 pg/mL (<125)
[2021-11-25] MEDS: ENTACAPONE 200 MG TABLET PO ×3 (07:59→14:08)
[2021-11-25] MEDS: KETOROLAC 30 MG/ML VIAL IV (08:15)
[2021-11-25] MEDS: HYDROMORPHONE 0.5 MG INJ IV (08:55)
--- NOTE | 2021-11-25 10:52 | PM.CN ---
History of Present Illness Consult details Date Patient Seen: 11/25/21 Time Patient Seen: 10:52 Chief complaint: post op complications/unable to urinatte/vomitting Narrative: 66-year-old man who presented last night complaining of inability to urinate and nausea vomiting no flatus. He is about 10 days out from a left nephrectomy at [facility]. He did have a postoperative obstruction following that operation but it resolved and he was discharged home however his symptoms started up again. He had a CT scan in the emergency department here which was suggestive of a bowel obstruction. After being admitted for the bowel obstruction he began passing flatus and bowel movements. He has not had nausea or vomiting and he has tolerated clear liquid diet today. Meds Home Medications and Allergies Home Medications Medication Instructions Recorded Confirmed Type amlodipine 2.5 mg tablet 2.5 mg PO QPM 11/25/21 11/25/21 History apixaban 5 mg tablet (Eliquis) mg PO ONCE PM 11/25/21 History atorvastatin 40 mg tablet 40 mg PO BEDTIME 11/25/21 11/25/21 History carbidopa 25 mg-levodopa 100 mg 1.5 tab PO QID 11/25/21 11/25/21 History tablet carbidopa ER 50 mg-levodopa 200 mg 1 tab PO BEDTIME 11/25/21 11/25/21 History tablet,extended release entacapone 200 mg tablet 200 mg PO 5XD 11/25/21 11/25/21 History lisinopril 20 mg tablet 20 mg PO BEDTIME 11/25/21 11/25/21 History omeprazole 25 mg PO 2XD 11/25/21 11/25/21 History pramipexole 0.25 mg tablet 0.25 mg PO 4XD 11/25/21 11/25/21 History pramipexole 1.5 mg tablet 0.5 mg PO BEDTIME 11/25/21 11/25/21 History rasagiline 1 mg tablet 1 mg PO DAILY 11/25/21 11/25/21 History sertraline 25 mg tablet 25 mg PO BEDTIME 11/25/21 11/25/21 History Allergies Allergy/AdvReac Type Severity Reaction Status Date / Time Penicillins [PENICILLINS] Allergy Unknown Verified 11/24/21 18:47 Exam Vital Signs (past 8 hours): - 11/25/21 03:30 11/25/21 04:00 11/25/21 08:00 Temperature 98.1 F 98.0 F Pulse Rate 100 H 95 H Respiratory Rate 16 22 Blood Pressure 105/59 L 113/65 Pulse Oximetry 91 94 Oxygen Delivery Method Room Air Oxygen Flow Rate 0 0 11/25/21 07:00 Temperature Pulse Rate Respiratory Rate Blood Pressure Pulse Oximetry 94 Oxygen Delivery Method Room Air Oxygen Flow Rate Oxygen Delivery Method Room Air Oxygen Flow Rate 0 Narrative Exam Narrative: No acute distress Abdomen is soft, protuberant Well-healed left upper quadrant surgical scar Objective Labs Result Diagrams: 11/25/21 06:00 11/25/21 06:00 Labs: Laboratory Results - last 24 hr 11/24/21 11/24/21 11/24/21 19:15 19:15 19:15 WBC 8.8 RBC 4.22 L Hgb 13.0 L Hct 38.2 L MCV 90.6 MCH 30.8 MCHC 34.0 RDW 13.8 Plt Count 226 Neut % (Auto) 66.9 Lymph % (Auto) 17.8 L Dane % (Auto) 8.9 Eos % (Auto) 5.8 H Baso % (Auto) 0.6 Neut # (Auto) 5900 Lymph # (Auto) 1600 Dane # (Auto) 800 Eos # (Auto) 500 H Baso # (Auto) 100 PT INR Sodium 137 Potassium 3.9 Chloride 101 Carbon Dioxide 24 BUN 15 Creatinine 1.11 Estimated GFR > 60 BUN/Creatinine Ratio 13.5 Glucose 117 H Lactate 0.9 Calcium 8.3 L Magnesium Total Bilirubin 0.5 AST 137 H ALT 53 H Alkaline Phosphatase 98 NT-Pro-B Natriuret Pep Total Protein 7.4 Albumin 3.9 Globulin 3.5 Albumin/Globulin Ratio 1.1 Lipase 121 Procalcitonin SARS-CoV-2 (PCR) 11/24/21 11/24/21 11/24/21 19:15 19:15 19:17 WBC RBC Hgb Hct MCV MCH MCHC RDW Plt Count Neut % (Auto) Lymph % (Auto) Dane % (Auto) Eos % (Auto) Baso % (Auto) Neut # (Auto) Lymph # (Auto) Dane # (Auto) Eos # (Auto) Baso # (Auto) PT INR Sodium Potassium Chloride Carbon Dioxide BUN Creatinine Estimated GFR BUN/Creatinine Ratio Glucose Lactate Calcium Magnesium 1.9 Total Bilirubin AST ALT Alkaline Phosphatase NT-Pro-B Natriuret Pep Total Protein Albumin Globulin Albumin/Globulin Ratio Lipase Procalcitonin 0.12 SARS-CoV-2 (PCR) Negative 11/25/21 11/25/21 11/25/21 06:00 06:00 06:00 WBC 10.0 RBC 4.14 L Hgb 12.5 L Hct 37.9 L MCV 91.5 MCH 30.2 MCHC 33.0 RDW 14.0 Plt Count 226 Neut % (Auto) 77.2 H Lymph % (Auto) 11.6 L Dane % (Auto) 7.1 Eos % (Auto) 3.8 Baso % (Auto) 0.3 Neut # (Auto) 7700 H Lymph # (Auto) 1200 Dane # (Auto) 700 Eos # (Auto) 400 Baso # (Auto) 0 PT 15.2 H INR 1.3 Sodium 137 Potassium 4.0 Chloride 106 Carbon Dioxide 22 BUN 13 Creatinine 1.04 Estimated GFR > 60 BUN/Creatinine Ratio 12.5 Glucose 101 Lactate Calcium 8.0 L Magnesium 1.8 Total Bilirubin AST ALT Alkaline Phosphatase NT-Pro-B Natriuret Pep 1440 H Total Protein Albumin Globulin Albumin/Globulin Ratio Lipase Procalcitonin SARS-CoV-2 (PCR) [facility] Medical History (Updated 11/25/21 @ 04:31 by SIMON Hadley-KEMI) Aortic stenosis Atrial fibrillation BMI 45.0-49.9, adult Essential hypertension Hyperlipidemia Left renal mass Parkinsons disease Surgical History (Updated 11/25/21 @ 04:31 by SIMON Hadley-KEMI) History of left radical nephrectomy History of right hip replacement Family History (Updated 11/25/21 @ 04:32 by SIMON Hadley-KEMI) Mother Congestive heart failure Sister Cancer Brother AIDS Social History household members: spouse Tobacco & Substance Use Smoking Status: Former smoker Assessment & Plan Assessment and plan (1) SBO (small bowel obstruction): Status: Acute Plan Early postoperative small bowel obstruction versus ileus seems to be resolving. He can try some regular diet for lunch and if he tolerates it well he can be discharged home. Time Spent With Patient Critical Care time: I spent a total of [] minutes of critical care time on this patient's care today; this time is exclusive of procedural time.
--- NOTE | 2021-11-25 11:53 | CM.DANOTE ---
DCP: Case received, EMR reviewed and met with patient. Introduced self and role. Was able to obtain information regarding patient's baseline activity level prior to hospitalization. DCP assessment completed with information currently available. Patient is a 66 year old male who admitted yesterday evening to the care of the hospitalist team. PCP: BARBI Valentine/[facility] Payer: confirmed: [employer] [facility]. Patient came to the hospital via private vehicle secondary to having inability to urinate, nausea and vomiting. Patient had been discharged recently from [facility], where he had a left nephrectomy. Patient indicated, he had been there for about 9 days. When he came to the hospital, he was noted to have bowel obstruction. Patient has now passed flatus, and is tolerating clear liquid diet. Met with patient in his room. He is alert and oriented, resides in [place] with spouse, Mary. He is independent at his baseline, and is employed the [employer]. P: DCP to continue to follow. Patient should be able to go home when he is deemed medically stable. Debbie Bray RN/Financial Operations Clerk Discharge Planning/Care Management CM Discharge Assessment Start: 11/25/21 11:50 Freq: Status: Active Protocol: Document 11/25/21 11:50 (Rec: 11/25/21 11:53 [id number]) Discharge Planning Assessment Assigned [employer] Former Debbie Bray RN/Financial Operations Clerk Advance Directives? No History Provided By Patient,Family Member,Medical Record Prior Living Arrangements RV Household Members spouse Type of transporation used prior to Drives own vehicle admit Independent with ADL's Yes Is patient alert and oriented? Yes Caregiver for Another No Barriers to Discharge No Discharge Plan Home Transportation Arrangement Spouse Referrals Initiated None needed Whiteboard Updated in Patient Room with Yes name and ext. # of [employer] Former Review Status In Process Next Review Type Continued Stay Review
[2021-11-25 12:26] LABS: Appearance Urine UA CLEAR; Bilirubin Urine UA NEGATIVE (NEGATIVE); Color Urine UA YELLOW; Glucose Urine UA NEGATIVE (Negative); Ketones Urine UA NEGATIVE (NEGATIVE); Leukocyte Esterase Urine UA TRACE (NEGATIVE); Nitrite Urine UA NEGATIVE (Negative); Occult Blood Urine UA NEGATIVE (Negative); Protein Urine UA TRACE (Negative); Urobilinogen Urine UA 0.2 E.U./dL (0.2); pH Urine UA 5.5 (4.5-8.0)
[2021-11-25 12:35] LABS: Bacteria Urine Occasional (0-1); Culture Indicated Urine Specimen Cultured; RBC Urine 0-1/HPF (0-5/HPF); Squamous Epithelial Cell Urine 0-1 /HPF (0-5/HPF); WBC Urine 1-5/HPF (0-5/HPF)
--- NOTE | 2021-11-25 15:29 | P.DS_ITS ---
History of Present Illness History of Present Illness Date Patient Seen: 11/25/21 Time Patient Seen: 02:00 Chief complaint: post op complications/unable to urinatte/vomitting Narrative: Mychal German is a 66-year-old male.? Has a history of atrial fibrillation, P arkinson's disease, HTN, renal mass left, recent radical nephrectomy, aortic stenosis, and HLD on chronic anticoag Eliquis.? 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 He had postoperative complication of a bowel obstruction that was treated non operatively with an NG tube. He was discharged home yesterday.?After returning home yesterday he started to have nausea and vomiting which has continued throughout today, he reports that his abd became severely distended, and he felt as if he was not urinating.? No specific change in abdominal discomfort, patient states that he has pain along the large vertical incision across his upper abdomen it is mostly itchy but has had no drainage warmth redness or swelling along incision site, his pain is 3/10 and has improved with pain management in the ED. patient notes that the vomiting ceased with medication in the ED, and the patient was able to take his oral medications without difficulty and has not vomited them up since.? As they were getting ready to transport him upstairs for admit the patient had a large bowel movement, then immediately upon being placed in the bed in his room he was incontinent of stool a 2nd time.? The patient states that his abdomen as decreased in size greatly.? The patient denies chest pain, shortness of breath, no further nausea or vomiting, fever, body aches, chills, denies blood in his stool, melena, hematuria, denies urinary symptoms, and feels overall that hisrecovery from surgery is going well. Upon admit patient is hemodynamically stable resting comfortably in bed temp 97.5?, BP 123/73, HR 110, RR 22, O2 saturation 96% on room air.? RBC 4.2 to, H&H 13/38.2, chemistries were unremarkable lipase procalcitonin and lactate were all unremarkable, AST 137 ALT 53, calcium 8.3. Abd/Pelvis CT demonstrated a small bowel obstruction, suspected to be at the transition point in the left abdomen. a left nephrectomy, with a small low-density fluid collection in the left nephrectomy bed, a small left pleural effusion, cholelithiasis.? Per Dr. Galo ED :Medical decision making narrative: CT scan shows bowel obstruction.? Patient is in AFib but is relatively rate controlled.? Labs are unremarkable.? Patient not retaining urine.? Did discuss the case with Urology at the [facility] who was the discharging service yesterday.? They did accept the patient in transfer been ask that we talk with our general surgeon locally to see if they are willing to manage the patient locally to try to avoid a transfer.? Did discuss the case with Dr. Xiong who is on-call for General surgery who was willing to consult on the patient locally knowing that if the patient worsens or does require surgery that a transfer to the [facility] will be necessary.? He asked that the patient be admitted to the medicine service.? Patient admitted for small-bowel obstruction, with mild anemia. Discharge Providers Provider Date of admission: 11/24/21 22:43 Discharge Date: 11/25/21 Consults: 11/24/21 23:15 Consult to Physician Routine Comment: Consulting Provider: Andrea Xiong Reason for consultation: S/P nephrectomy SBO Has provider been notified: Yes Discharge provider: Arnulfo Dover DO Summary Hospital Course Discharge Diagnosis: 1. Small-bowel obstruction, acute, present on admission likely secondary complication to S/P radical left nephrectomy (11/15/21)as a result of left renal mass. 2. Anemia, Mild, acute, present on admission 3. Atrial fibrillation, chronic, on chronic anticoagulation, present on admission-improved 4. Essential hypertension, chronic, present on admission 5. Parkinson's disease, chronic, present on admission 6. Hyperlipidemia, chronic, present on admission 7. GERD, chronic, present on admission 8. Morbid obesity as evidence by BMI of 43.3, acute on chronic, present on admission Hospital Course: Admitted for NV and no BM's for several days and found to have a SBO on CT abd with transition point in left abdomen. Patient kept NPO and quickly began to pass gas and had BM's. Able to tolerate a full lunch without NV. Gen surg evaluated and cleared to return home. Patient advised if he develops NV again after not having a BM for a few days to return to the ED for likely SBO again. Time Spent with Patient Time spent: Greater than 30 minutes Exam Vital Signs (past 8 hours): - 11/25/21 08:00 11/25/21 12:00 11/25/21 12:36 Temperature 98.0 F 96.9 F L Pulse Rate 95 H 68 Respiratory Rate 22 20 Blood Pressure 113/65 121/64 90/49 L Pulse Oximetry 94 97 Oxygen Delivery Method Oxygen Flow Rate 0 11/25/21 11:00 Temperature Pulse Rate Respiratory Rate Blood Pressure Pulse Oximetry 97 Oxygen Delivery Method Room Air Oxygen Flow Rate Oxygen Delivery Method Room Air Oxygen Flow Rate 0 Narrative Exam Narrative: General: Patient is a delightful well-developed, well-nourished morbidly obese male in no distress at this time. HEENT: Normocephalic, atraumatic, extraocular muscles intact, oral pharynx is clear and mucous membranes are moist. Neck is supple and symmetric, trachea is midline, no adenopathy, no thyroid enlargement, nontender, no masses palpated. Negative for JVD Chest: Normal AP diameter and contour without kyphoscoliosis, no nasal flaring, retractions, or tachypneic labored Lungs: Auscultation of all lung argueta are clear without adventitious sounds, wheezes, rhonchi, or rales. Cardio: Irregular rate and rhythm Abdomen: Soft distended, with a well healing arching surgical incision from the right upper quad to the left upper quad, steri strips in place, no signs of infection, closed no drainage noted, significant bruising along the lower abd. Bowel sounds are normal active & present in all 4 quadrants. Musculoskeletal: Muscle strength and tone are equal within normal limits, no deformity, crepitus, effusions, cyanosis, clubbing or edema present. Full range of motion intact radial and pedal pulses are normal. Skin: Warm dry and intact without rashes, ulcerations or petechiae. Neuro: Alert and orientated x3, strength is +5/5 in all extremities, sensation to touch intact, no gross deficits noted of cranial nerves. Psych: Patient has a well-kept appearance, appropriate affect, mental status attitude thought context and judgment are appropriate for age. Objective Labs Result Diagrams: 11/25/21 06:00 11/25/21 06:00 Labs: Laboratory Results - last 24 hr 11/24/21 11/24/21 11/24/21 19:15 19:15 19:15 WBC 8.8 RBC 4.22 L Hgb 13.0 L Hct 38.2 L MCV 90.6 MCH 30.8 MCHC 34.0 RDW 13.8 Plt Count 226 Neut % (Auto) 66.9 Lymph % (Auto) 17.8 L [place] % (Auto) 8.9 Eos % (Auto) 5.8 H Baso % (Auto) 0.6 Neut # (Auto) 5900 Lymph # (Auto) 1600 [place] # (Auto) 800 Eos # (Auto) 500 H Baso # (Auto) 100 PT INR Sodium 137 Potassium 3.9 Chloride 101 Carbon Dioxide 24 BUN 15 Creatinine 1.11 Estimated GFR > 60 BUN/Creatinine Ratio 13.5 Glucose 117 H Lactate 0.9 Calcium 8.3 L Magnesium Total Bilirubin 0.5 AST 137 H ALT 53 H Alkaline Phosphatase 98 NT-Pro-B Natriuret Pep Total Protein 7.4 Albumin 3.9 Globulin 3.5 Albumin/Globulin Ratio 1.1 Lipase 121 Procalcitonin Urine Color Urine Appearance Urine pH Ur Specific [place] Urine Protein Urine Glucose (UA) Urine Ketones Urine Occult Blood Urine Nitrate Urine Bilirubin Urine Urobilinogen Ur Leukocyte Esterase Urine RBC Urine WBC Ur Squamous Epith Cells Urine Bacteria Ur Culture Indicated? SARS-CoV-2 (PCR) 11/24/21 11/24/21 11/24/21 19:15 19:15 19:17 WBC RBC Hgb Hct MCV MCH MCHC RDW Plt Count Neut % (Auto) Lymph % (Auto) [place] % (Auto) Eos % (Auto) Baso % (Auto) Neut # (Auto) Lymph # (Auto) [place] # (Auto) Eos # (Auto) Baso # (Auto) PT INR Sodium Potassium Chloride Carbon Dioxide BUN Creatinine Estimated GFR BUN/Creatinine Ratio Glucose Lactate Calcium Magnesium 1.9 Total Bilirubin AST ALT Alkaline Phosphatase NT-Pro-B Natriuret Pep Total Protein Albumin Globulin Albumin/Globulin Ratio Lipase Procalcitonin 0.12 Urine Color Urine Appearance Urine pH Ur Specific [place] Urine Protein Urine Glucose (UA) Urine Ketones Urine Occult Blood Urine Nitrate Urine Bilirubin Urine Urobilinogen Ur Leukocyte Esterase Urine RBC Urine WBC Ur Squamous Epith Cells Urine Bacteria Ur Culture Indicated? SARS-CoV-2 (PCR) Negative 11/25/21 11/25/21 11/25/21 06:00 06:00 06:00 WBC 10.0 RBC 4.14 L Hgb 12.5 L Hct 37.9 L MCV 91.5 MCH 30.2 MCHC 33.0 RDW 14.0 Plt Count 226 Neut % (Auto) 77.2 H Lymph % (Auto) 11.6 L [place] % (Auto) 7.1 Eos % (Auto) 3.8 Baso % (Auto) 0.3 Neut # (Auto) 7700 H Lymph # (Auto) 1200 [place] # (Auto) 700 Eos # (Auto) 400 Baso # (Auto) 0 PT 15.2 H INR 1.3 Sodium 137 Potassium 4.0 Chloride 106 Carbon Dioxide 22 BUN 13 Creatinine 1.04 Estimated GFR > 60 BUN/Creatinine Ratio 12.5 Glucose 101 Lactate Calcium 8.0 L Magnesium 1.8 Total Bilirubin AST ALT Alkaline Phosphatase NT-Pro-B Natriuret Pep 1440 H Total Protein Albumin Globulin Albumin/Globulin Ratio Lipase Procalcitonin Urine Color Urine Appearance Urine pH Ur Specific [place] Urine Protein Urine Glucose (UA) Urine Ketones Urine Occult Blood Urine Nitrate Urine Bilirubin Urine Urobilinogen Ur Leukocyte Esterase Urine RBC Urine WBC Ur Squamous Epith Cells Urine Bacteria Ur Culture Indicated? SARS-CoV-2 (PCR) 11/25/21 11:40 WBC RBC Hgb Hct MCV MCH MCHC RDW Plt Count Neut % (Auto) Lymph % (Auto) [place] % (Auto) Eos % (Auto) Baso % (Auto) Neut # (Auto) Lymph # (Auto) [place] # (Auto) Eos # (Auto) Baso # (Auto) PT INR Sodium Potassium Chloride Carbon Dioxide BUN Creatinine Estimated GFR BUN/Creatinine Ratio Glucose Lactate Calcium Magnesium Total Bilirubin AST ALT Alkaline Phosphatase NT-Pro-B Natriuret Pep Total Protein Albumin Globulin Albumin/Globulin Ratio Lipase Procalcitonin Urine Color Yellow Urine Appearance Clear Urine pH 5.5 Ur Specific [place] 1.010 Urine Protein Trace H Urine Glucose (UA) Negative Urine Ketones Negative Urine Occult Blood Negative Urine Nitrate Negative Urine Bilirubin Negative Urine Urobilinogen 0.2 Ur Leukocyte Esterase Trace H Urine RBC 0-1/hpf Urine WBC 1-5/hpf Ur Squamous Epith Cells 0-1 /hpf Urine Bacteria Occasional (0-1) Ur Culture Indicated? Specimen cultured SARS-CoV-2 (PCR) [facility] Medical History (Updated 11/25/21 @ 04:31 [facility] Aortic stenosis Atrial fibrillation BMI 45.0-49.9, adult Essential hypertension Hyperlipidemia Left renal mass Parkinsons disease Surgical History (Updated 11/25/21 @ 04:31 by SIMON Hadley-KEMI) History of left radical nephrectomy History of right hip replacement Family History (Updated 11/25/21 @ 04:32 by SIMON Hadley-KEMI) Mother Congestive heart failure Sister Cancer Brother AIDS Social History household members: spouse Smoking Status: Former smoker Discharge Plan Discharge Plan Patient Disposition: Home Provider Discharge Comment: You were admitted for a small bowel obstruction which quickly resolved and you were able to eat and drink without nausea. You also began to pass gas and have BM's. Try to keep up your laxative use to keep yourself regular, using miralax over the counter with senna to have at least one BM per day. Discharge orders & Medications Prescriptions: Continued carbidopa-levodopa 25-100 mg Tablet 1.5 tab PO QID Label Comments: according to patient and spouse he takes this medication at 0430, 10;30, 1430, 1730. entacapone 200 mg Tablet 200 mg PO 5XD Rx Instructions: pt takes this medication at 0430, 1030, 1430, 1730 and 2130 pramipexole 0.25 mg Tablet 0.25 mg PO 4XD Rx Instructions: pt take this medication at 0430m, 1030, 1430 and 1730 pramipexole 1.5 mg Tablet 0.5 mg PO BEDTIME Rx Instructions: pt normally takes it at6 2130 carbidopa-levodopa 50-200 mg Tablet Extended Release 1 tab PO BEDTIME Label Comments: pt takes this medication at 2130 rasagiline 1 mg Tablet 1 mg PO DAILY Label Comments: py takes this medication at 0430 omeprazole 25 mg PO 2XD Label Comments: pt takes this medication at 0430 and 2130 lisinopril 20 mg Tablet 20 mg PO BEDTIME atorvastatin 40 mg Tablet 40 mg PO BEDTIME amlodipine 2.5 mg Tablet 2.5 mg PO QPM sertraline 25 mg Tablet 25 mg PO BEDTIME Eliquis 5 mg Tablet 5 mg PO BID Rx Instructions: pt had stopped medication prior to surgery Quality VTE Deep Vein Thrombosis/Pulmonary Embolism Present on Admission: No
--- NOTE | 2021-11-25 15:56 | PC.NURSE ---
Pt is A&Ox3, VSS, afebrile on RA. He remains Afib on telemetry rate controlled 70's. He reports abdominal tenderness but much improved since distention has reduced drastically since he first came in to the ED. He denies n/v or dizziness. He has +BS, and is passing lots of gas and has had some loose BM's since laxatives given. He is able to tolerate clear liquids this m. and MD Cowan at bedside this a.m. assessing patient answering family questions. Patient is able to tolerate a general diet for lunch and after hospitalist evaluation he is cleared for discharge home this afternoon. He and his verbalized understanding of discharge recommendations, medications, follow up and activity. He is escorted by RN with daughter and to private vehicle for discharge home at 1445.
== END 2021-11-25 14:45 | disposition home or self-care (01) ==
LOC: ED 22:42 → AC 23:12
PROVIDERS: Admitting Provider Nurse Practitioner Family; Emergency Provider Emergency Medicine; Referring Provider Emergency Medicine; Visit Provider Nurse Practitioner Family
DX: K56.609 Unspecified intestinal obstruction, unspecified as to partial versus complete obstruction (principal); R11.2 Nausea with vomiting, unspecified; R39.198 Other difficulties with micturition; Z90.5 Acquired absence of kidney; D64.9 Anemia, unspecified; G20 Parkinson's disease; Z79.01 Long term (current) use of anticoagulants; I48.20 Chronic atrial fibrillation, unspecified; I10 Essential (primary) hypertension; E78.5 Hyperlipidemia, unspecified; K21.9 Gastro-esophageal reflux disease without esophagitis; E66.01 Morbid (severe) obesity due to excess calories; Z68.41 Body mass index [BMI] 40.0-44.9, adult; Z20.822 Contact with and (suspected) exposure to COVID-19
CPT/HCPCS: 36415; 51798; 74177; 80048; 80053; 81001; 83605; 83690; 83735; 83880; 84145; 85025; 85610; 87040; 87086; 87635; 93005; 93010; 96361; 96365; 96367; 96374; 96375; 99224; 99284; C9803; G0378; C9113; J0690; J1170; J1885; J2405; Q9967

== ENCOUNTER → 2022-02-12 12:42 | Outpatient (CLI) | payer BC, SELFPAY ==
[2021-11-25] VITALS: BMI 43.3
--- NOTE | 2022-02-12 | DI.NM.S_ITS ---
PROCEDURE: NM REGINA PERF SPECT R&S PHARM Rest and pharmacological stress myocardial perfusion SPECT with gated imaging and ejection fraction RADIOPHARMACEUTICAL: 27.0 mCi Tc-99m tetrafosmin IV at rest and 24.7 mCi Tc-99m tetrafosmin IV at peak effect of pharmacological stress. [id number] was performed. INDICATIONS: nonrheumatic aortic (valve) stenosis TECHNIQUE: Radiopharmaceutical was injected at peak stress test, and also at rest. SPECT images were obtained. SPECT myocardial perfusion images were displayed in short axis, horizontal long axis, and vertical long axis views. Gated images were reviewed using [email or web address] software. COMPARISON: None. CARDIAC STRESS: A pharmacologic stress test was performed under the supervision of an attending staff, using an infusion of lexiscan 0.4mg IV X1. Hemodynamic data: There is normal blood pressure and heart rate response to pharmacologic stress. Symptoms: The patient had chest pain with injection of lexiscan. Aminophylline: none EKG: Resting ECG showed AF with RVR. No diagnostic changes of ischemia with lexiscan. During recovery, the patient was administered metoprolol IV 5mg X1 to lower ventricular rates. FINDINGS: Raw data: There is good myocardial uptake of radiotracer. No significant motion artifacts. Qlmw-vt-topyu ratio is 0.32 (normal is less than 0.38 for tetrafosmin tracer). Left ventricle function: Gated images demonstrate normal left ventricular wall thickening. No segmental wall motion abnormalities. No transient ischemic dilation; TID is 1.11 (normal less than 1.3). Left ventricle resting end diastolic volume is 199 mL. Left ventricle stress ejection fraction is 37%; normal range is above 45%. Myocardial perfusion: There is a mildly intense reversible defect in the distal inferior wall that worsens with prone imaging, suggesting probable small ischemia but artifact can't be definitively excluded. No prior infarction. SSS 2, SRS 0. IMPRESSION: Abnormal nuclear stress test consistent with probable small volume of ischemia in the distal inferior wall. No prior infarction. 1) There is a mildly intense reversible defect in the distal inferior wall that worsens with prone imaging, suggesting probable small ischemia but artifact can't be definitively excluded. No prior infarction. SSS 2, SRS 0. 2) Enlarged left ventricle with moderately reduced systolic function (EF post stress 37%). 3) Atrial fibrillation with rapid ventricular response present at rest. Metoprolol 5mg IV X1 given after lexiscan to lower ventricular rate. 4) Non-diagnostic chest pain with lexiscan. 5) No prior nuclear stress test available for comparison. Dictated by: Brandee Issa MD on 02/13/2022 at 16:34 Approved by: Brandee Issa MD on 02/13/2022 at 16:38
== END ==
PROVIDERS: PCP Physician Assistant; Referring Provider Internal Medicine Cardiovascular Disease; Visit Provider Internal Medicine Cardiovascular Disease
DX: I35.0 Nonrheumatic aortic (valve) stenosis (principal); I48.19 Other persistent atrial fibrillation; R94.39 Abnormal result of other cardiovascular function study
CPT/HCPCS: 78452; 93017; A9502; J2785

== ENCOUNTER 2022-07-14 07:27 | Emergency (ER) | payer BC, SELFPAY ==
[2021-11-25] VITALS: BMI 43.3
[2022-07-14] VITALS (17 sets, daily range): BP systolic 110–114; BP diastolic 60–75; PULSE 109–125; RESP 18–33; TEMP 36.6; O2SAT 93–100; BMI 41.8
--- NOTE | 2022-07-14 07:46 | DI.CT.S_ITS ---
PROCEDURE: CT ABDOMEN PELVIS WO CON INDICATIONS: hx of renal CA with left nephrectomy with pain and vomiting TECHNIQUE: Axial sections were acquired from the lung bases to the pubic symphysis. Coronal and sagittal reformats were performed. For radiation dose reduction, the following was used: automated exposure control, adjustment of mA and/or kV according to patient size. COMPARISON: [facility], CT, CT ABDOMEN PELVIS W CON, 11/24/2021, 20:07. [facility], CT, CT ABDOMEN RENAL PROTOCOL, 11/12/2021, 14:21. FINDINGS: Image quality: There is artifact associated with the metallic hardware. Lung bases: Unremarkable. The previously seen left-sided pleural effusion has resolved. Heart: No significant findings. URINARY: Right Kidney: No stones or hydronephrosis. Right Ureter: No hydroureter. Left Kidney: Left nephrectomy and ureterectomy. No significant abnormality of the postoperative bed can be seen. Bladder: Normal wall thickness. No stones. ABDOMEN: Liver: Unremarkable. Gallbladder: Layering gallstones can be seen. No additional CT findings of cholecystitis can be seen. Biliary ducts: Unremarkable. Pancreas: Unremarkable. Spleen: Unremarkable. Adrenal Glands: Unremarkable. Stomach and Bowel: Scattered colonic diverticula can be seen. Within the proximal descending colon, there is mild wall thickening with focal inflammatory change. No additional colonic inflammatory change is seen. No dilated loops of small bowel are seen. A normal appendix is seen. No significant gastric abnormality is seen. Peritoneum: No peritoneal abscess is seen. No abnormal intraperitoneal fluid. No free air. Ventral Wall: No hernia. Abdominal Nodes: No enlarged retroperitoneal or mesenteric lymph nodes. Vessels: Aorta and inferior vena cava are normal in size. PELVIS: Pelvic Organs: Unremarkable. Pelvic Nodes: Unremarkable. Miscellaneous: Bilateral fat containing inguinal hernias are seen, left worse than right. Bones: Right hip arthroplasty hardware is seen. Age-appropriate bony degenerative changes are seen. IMPRESSION: Focal diverticulitis is seen involving the proximal descending colon. No findings of perforation or abscess can be seen. No dilated loops of small bowel are seen. No recurrent small-bowel obstruction. Left nephrectomy, without abnormality seen within the nephrectomy bed No significant abnormality of the right kidney can be seen. Additional findings: Layering gallstones Normal appendix Right hip arthroplasty hardware Bilateral fat containing inguinal hernias Dictated by: Ramin Wall M.D. on 07/14/2022 at 8:56 Approved by: Ramin Wall M.D. on 07/14/2022 at 9:01
--- NOTE | 2022-07-14 07:51 | ED.NAVMDI ---
HPI - Nausea/Vomiting/Diarrhea General Chief complaint: Nausea/Vomiting/Diarrhea Stated complaint: diarrhea, abd pain, hot to cold Time Seen by Provider: 07/14/22 07:44 Source: patient Mode of arrival: Ambulatory Limitations: no limitations History of Present Illness HPI Narrative: Patient is a 67-year-old male. History of Parkinson's disease. History of atrial fibrillation and is on Eliquis. Also has a history of small-bowel obstructions. Also has a history of renal cell carcinoma. The end of last year underwent a left-sided nephrectomy. Is being followed by Oncology locally. He is getting infusions for this although he states that for the past several weeks he is had abdominal pain that has become more severe and more consistent. He is having diarrhea. Also having chills. He states he has talked with his oncologist about this. States that his oncologist thinks that he has a ?infection? although he is not on any antibiotics. States he is never been told exactly where this infection may be. They have actually held his infusions because of this. He states the pain is not associated with eating or bowel movements or urination. Has had some nausea but no vomiting. He states that his oncologist has not done anything specifically about his abdominal pain. Related Data Home Medications Medication Instructions Recorded Confirmed apixaban 5 mg tablet (Eliquis) 5 mg PO BID 11/25/21 11/25/21 atorvastatin 40 mg tablet 40 mg PO BEDTIME 11/25/21 11/25/21 carbidopa 25 mg-levodopa 100 mg 1.5 tab PO QID 11/25/21 11/25/21 tablet carbidopa ER 50 mg-levodopa 200 mg 1 tab PO BEDTIME 11/25/21 11/25/21 tablet,extended release entacapone 200 mg tablet 200 mg PO 5XD 11/25/21 11/25/21 lisinopril 20 mg tablet 20 mg PO BEDTIME 11/25/21 11/25/21 omeprazole 25 mg PO 2XD 11/25/21 11/25/21 pramipexole 0.25 mg tablet 0.25 mg PO 4XD 11/25/21 11/25/21 pramipexole 1.5 mg tablet 0.5 mg PO BEDTIME 11/25/21 11/25/21 rasagiline 1 mg tablet 1 mg PO DAILY 11/25/21 11/25/21 sertraline 25 mg tablet 25 mg PO BEDTIME 11/25/21 11/25/21 Previous Rx's Medication Instructions Recorded ciprofloxacin HCl 500 mg tablet 500 mg PO BID 10 days #20 tabs 07/14/22 hydrocodone 5 mg-acetaminophen 325 1 tab PO Q4-6H PRN pain #10 tabs 07/14/22 mg tablet metronidazole 500 mg tablet 500 mg PO TID 10 days #30 tabs 07/14/22 ondansetron 4 mg disintegrating 4 mg PO Q6H PRN nausea and 07/14/22 tablet vomiting #20 tabs Allergies Allergy/AdvReac Type Severity Reaction Status Date / Time Penicillins [PENICILLINS] Allergy Unknown Verified 07/14/22 07:42 Review of Systems Review of Systems ROS Unobtainable: All systems reviewed & are unremarkable except as noted in HPI and below Patient History Medical History Aortic stenosis Atrial fibrillation BMI 45.0-49.9, adult Essential hypertension Hyperlipidemia Left renal mass Parkinsons disease Surgical History (Updated 11/25/21 @ 04:31 by JHONNY Hadley) History of left radical nephrectomy History of right hip replacement Family History (Updated 11/25/21 @ 04:32 by JHONNY Hadley) Mother Congestive heart failure Sister Cancer Brother AIDS Social History household members: spouse Smoking Status: Former smoker Smoking Status: Former smoker tobacco type: cigarettes alcohol intake frequency: 0-2 drinks per day Substance Use Type: does not use Exam Initial Vital Signs Initial Vital Signs: Vital Signs Pulse Rate 125 H 07/14/22 07:35 Respiratory Rate 32 H 07/14/22 07:35 Const General: cooperative and No ill appearing HENWI Head: normal to inspection and normocephalic Resp Effort & Inspection: normal respiratory effort Cardio Rate: tachycardic GI Inspection: normal to inspection and non-distended Palpation: soft, No firm, No guarding and tender (Generalized tenderness) Skin General: no rashes or lesions noted Neuro General: patient alert, patient awake and moves all extremities Extrem General: normal to inspection and capillary refill normal Course Orders Ordered: ED Orders 07/14/22 07:46 CT abdomen pelvis wo con Stat 07/14/22 07:47 Complete Blood Count AUTO DIFF Stat Comprehensive Metabolic Panel Stat Free T3, Triiodothyronine Free Stat Free T4, Direct Thyroxine Stat Lactate (Lactic Acid) Stat Lipase Stat Procalcitonin Stat Thyroid Stimulating Hormone Stat 07/14/22 08:25 Blood Culture Stat 07/14/22 09:04 Urine Culture Stat Urine Microscopic Stat Discontinued Medications Ciprofloxacin (Ciprofloxacin 250 Mg Tablet) 500 mg PO NOW ONE Stop: 07/14/22 10:29 Last Admin: 07/14/22 11:09 Dose: 500 mg Documented By: NICOLE Sodium Chloride (Normal Saline 0.9%) 1,000 mls @ 1,000 mls/hr IV BOLUS ONE Stop: 07/14/22 08:44 Last Infusion: 07/14/22 09:07 Dose: 0 mls/hr Documented By: Admin: 07/14/22 08:05 Dose: 1,000 mls/hr Documented By: LUCILLE Metronidazole (Metronidazole 500 Mg Tablet) 500 mg PO NOW ONE Stop: 07/14/22 10:29 Last Admin: 07/14/22 11:08 Dose: 500 mg Documented By: NICOLE Morphine Sulfate (Morphine 4 Mg/Ml Inj) 4 mg IV NOW ONE Stop: 07/14/22 07:55 Last Admin: 07/14/22 08:05 Dose: 4 mg Documented By: LUCILLE Ondansetron HCl (Ondansetron 4 Mg/2 Ml Inj) 4 mg IV NOW ONE Stop: 07/14/22 07:55 Last Admin: 07/14/22 08:05 Dose: 4 mg Documented By: LUCILLE Vital Signs Vital signs: Vital Signs - 8 hr 07/14/22 07:38 07/14/22 07:35 07/14/22 07:37 Temperature 97.8 F Pulse Rate 120 H 125 H Respiratory Rate 18 32 H Blood Pressure 114/75 114/75 Pulse Oximetry Oxygen Delivery Method Room Air 07/14/22 07:37 07/14/22 08:00 07/14/22 08:00 Temperature Pulse Rate 115 H 112 H Respiratory Rate 29 H 33 H Blood Pressure 110/71 Pulse Oximetry 98 98 Oxygen Delivery Method 07/14/22 08:15 07/14/22 08:30 07/14/22 08:30 Temperature Pulse Rate 115 H 115 H Respiratory Rate 28 H 28 H Blood Pressure 112/66 Pulse Oximetry 98 95 Oxygen Delivery Method 07/14/22 08:45 07/14/22 09:03 07/14/22 09:24 Temperature Pulse Rate 114 H Respiratory Rate 27 H 28 H Blood Pressure Pulse Oximetry 100 93 Oxygen Delivery Method 07/14/22 09:45 07/14/22 10:00 07/14/22 10:15 Temperature Pulse Rate 115 H 115 H 118 H Respiratory Rate Blood Pressure Pulse Oximetry 97 96 97 Oxygen Delivery Method 07/14/22 10:30 07/14/22 10:45 07/14/22 11:00 Temperature Pulse Rate 114 H 118 H 116 H Respiratory Rate 29 H Blood Pressure Pulse Oximetry 97 98 97 Oxygen Delivery Method 07/14/22 11:15 Temperature Pulse Rate 118 H Respiratory Rate Blood Pressure Pulse Oximetry Oxygen Delivery Method MDM - Nausea/Vomiting/Diarrhea Medical Records Attestation: I reviewed the patient's medical records. Lab Data Attestation: I reviewed the patient's lab results. 07/14/22 07:47 07/14/22 07:47 Labs: Lab Results 07/14/22 07/14/22 07/14/22 Range/Units 07:47 07:47 07:47 WBC 10.1 (4.5-11.0) X10^3/uL RBC 4.85 (4.5-5.9) X10^6/uL Hgb 14.8 (13.5-17.5) g/dL Hct 42.8 (41-53) % MCV 88.1 (80-100) fL MCH 30.5 (26-34) PG MCHC 34.6 (30-36) % RDW 13.6 (11.6-14.8) % Plt Count 193 (150-400) X10^3/uL Neut % (Auto) 71.5 (50-75) % Lymph % (Auto) 16.6 L (25-40) % Knott % (Auto) 9.2 (3-14) % Eos % (Auto) 1.8 L (2-4) % Baso % (Auto) 0.9 (0-2) % Neut # (Auto) 7200 H (2795-6623) /uL Lymph # (Auto) 1700 (2390-9981) /uL Knott # (Auto) 900 (0-900) /uL Eos # (Auto) 200 (0-450) /uL Baso # (Auto) 100 (0-100) /uL Sodium 129 L (137-145) mmol/L Potassium 5.1 (3.4-5.1) mmol/L Chloride 97 L (98-107) mmol/L Carbon Dioxide 25 (22-32) mmol/L BUN 34 H (9-20) mg/dL Creatinine 1.78 H (0.66-1.25) mg/dL Estimated GFR 42 L (>60) mL/min BUN/Creatinine Ratio 19.1 (6-22) Glucose 123 H (80-110) mg/dL Lactate (0.7-2.1) mmol/L Calcium 9.4 (8.4-10.2) mg/dL Total Bilirubin 1.2 (0.2-1.3) mg/dL AST 28 (17-59) IU/L ALT 11 (<50) IU/L Alkaline Phosphatase 68 (38-126) U/L Total Protein 8.3 H (6.3-8.2) g/dL Albumin 4.8 (3.5-5.0) g/dL Globulin 3.5 (1.7-4.1) g/dL Albumin/Globulin Ratio 1.4 (1.0-2.8) Lipase 75 (23-300) U/L Procalcitonin (<0.5) ng/mL TSH < 0.015 L (0.47-4.68) uIU/mL Urine RBC (0-5/HPF) Urine WBC (0-5/HPF) Ur Squamous Epith Cells (0-5/HPF) Urine Bacteria (None) Hyaline Casts (None) Urine Mucus (Negative) Ur Culture Indicated? 07/14/22 07/14/22 07/14/22 Range/Units 07:47 07:47 09:04 WBC (4.5-11.0) X10^3/uL RBC (4.5-5.9) X10^6/uL Hgb (13.5-17.5) g/dL Hct (41-53) % MCV (80-100) fL MCH (26-34) PG MCHC (30-36) % RDW (11.6-14.8) % Plt Count (150-400) X10^3/uL Neut % (Auto) (50-75) % Lymph % (Auto) (25-40) % Knott % (Auto) (3-14) % Eos % (Auto) (2-4) % Baso % (Auto) (0-2) % Neut # (Auto) (6043-3944) /uL Lymph # (Auto) (4975-7758) /uL Knott # (Auto) (0-900) /uL Eos # (Auto) (0-450) /uL Baso # (Auto) (0-100) /uL Sodium (137-145) mmol/L Potassium (3.4-5.1) mmol/L Chloride (98-107) mmol/L Carbon Dioxide (22-32) mmol/L BUN (9-20) mg/dL Creatinine (0.66-1.25) mg/dL Estimated GFR (>60) mL/min BUN/Creatinine Ratio (6-22) Glucose (80-110) mg/dL Lactate 1.3 (0.7-2.1) mmol/L Calcium (8.4-10.2) mg/dL Total Bilirubin (0.2-1.3) mg/dL AST (17-59) IU/L ALT (<50) IU/L Alkaline Phosphatase (38-126) U/L Total Protein (6.3-8.2) g/dL Albumin (3.5-5.0) g/dL Globulin (1.7-4.1) g/dL Albumin/Globulin Ratio (1.0-2.8) Lipase (23-300) U/L Procalcitonin 0.11 (<0.5) ng/mL TSH (0.47-4.68) uIU/mL Urine RBC 0-1/hpf (0-5/HPF) Urine WBC 1-5/hpf (0-5/HPF) Ur Squamous Epith Cells 0-1 /hpf (0-5/HPF) Urine Bacteria Moderate (10-30) H (None) Hyaline Casts 1-5/lpf (None) Urine Mucus 1+ H (Negative) Ur Culture Indicated? Specimen cultured Urine Dip Bedside Urine Glucose Negative Bedside Urine Bilirubin - Negative Bedside Urine Ketone - Negative Urine Specific [place] 1.030 Bedside Urine Occult Blood - Negative Bedside Urine pH 6.0 Bedside Urine Protein - Negative Bedside Urine Urobilinogen - Negative Bedside Urine Nitrite - Negative Bedside Urine Leukocytes + [address] scan - abdomen/pelvis: Radiologist's Impression: PROCEDURE:? CT ABDOMEN PELVIS WO CON ? INDICATIONS:? hx of renal CA with left nephrectomy with pain and vomiting ? TECHNIQUE:? Axial sections were acquired from the lung bases to the pubic symphysis.? Coronal and sagittal reformats were performed.? For radiation dose reduction, the following was used: ?automated exposure control, adjustment of mA and/or kV according to patient size.? ? COMPARISON:? [facility], CT, CT ABDOMEN PELVIS W CON, 11/24/2021, 20:07.? [facility], CT, CT ABDOMEN RENAL PROTOCOL, 11/12/2021, 14:21. ? FINDINGS:? Image quality:? There is artifact associated with the metallic hardware. ? ? Lung bases:? Unremarkable.? ? The previously seen left-sided pleural effusion has resolved. Heart:? No significant findings. ? URINARY: Right Kidney: ? No stones or hydronephrosis.? Right Ureter:? No hydroureter.? ? Left Kidney:? Left nephrectomy and ureterectomy.? No significant abnormality of the postoperative bed can be seen. ? Bladder:? Normal wall thickness. No stones. ? ? ? ABDOMEN: Liver:? Unremarkable.? ? Gallbladder:? Layering gallstones can be seen.? No additional CT findings of cholecystitis can be seen.? ? Biliary ducts:? Unremarkable.? ? Pancreas:? Unremarkable.? ? Spleen:? Unremarkable.? ? Adrenal Glands:? Unremarkable.? ? ? Stomach and Bowel:? Scattered colonic diverticula can be seen.? Within the proximal descending colon, there is mild wall thickening with focal inflammatory change. No additional colonic inflammatory change is seen. No dilated loops of small bowel are seen. A normal appendix is seen. No significant gastric abnormality is seen. Peritoneum:? No peritoneal abscess is seen.? No abnormal intraperitoneal fluid.? No free air.? ? Ventral Wall: ? No hernia.? Abdominal Nodes:? No enlarged retroperitoneal or mesenteric lymph nodes.? Vessels:? Aorta and inferior vena cava are normal in size.? ? PELVIS: Pelvic Organs:? Unremarkable.? ? Pelvic Nodes: Unremarkable. Miscellaneous:? Bilateral fat containing inguinal hernias are seen, left worse than right. ? Bones:? Right hip arthroplasty hardware is seen.? Age-appropriate bony degenerative changes are seen.? ? IMPRESSION:? Focal diverticulitis is seen involving the proximal descending colon. ? No findings of perforation or abscess can be seen. ? No dilated loops of small bowel are seen.? No recurrent small-bowel obstruction. ? Left nephrectomy, without abnormality seen within the nephrectomy bed ? No significant abnormality of the right kidney can be seen. ? ? ? Additional findings:? Layering gallstones Normal appendix Right hip arthroplasty hardware Bilateral fat containing inguinal hernias ECG Data Attestation: I personally reviewed and interpreted this ECG as follows: Interpretation: Atrial fibrillation Ventricular rate 112 Normal axis Normal QRS Normal QTC Nonspecific ST T wave changes MDM Narrative Medical decision making narrative: Patient is in atrial fibrillation but is relatively rate controlled. Similar to when he was here the last time. He is on anticoagulation. Has had abdominal discomfort for the past several weeks. Today on the CT scan he does have diverticulitis. He is never been diagnosed with this in the past. There is no signs of bowel obstruction or perforation. I did inform him that this potentially could be causing his abdominal pain. We should start him on antibiotics. He was given 1st dose here in the emergency department and was able to tolerate it without issues. Plan to be is to discharge home with a prescription for the remainder of the course of antibiotics. He was instructed he needed to contact his oncologist for follow-up. He was given return precautions. He expressed understanding and agreement. Discharge Plan Departure Patient Disposition: Home Clinical Impression: Diverticulitis Instructions: DI for Diverticulitis Activity Restrictions/Additional Instructions: We do need to start you on antibiotics. The prescription was sent to the pharmacy of your choice along with some nausea medicine and pain medicine to use as needed. I recommend that you contact your oncologist and also your primary doctor for a follow-up. Return to the emergency department for new or worsening symptoms. Prescriptions: New metronidazole 500 mg tablet 500 mg PO TID 10 Days Qty: 30 0RF ciprofloxacin HCl 500 mg tablet 500 mg PO BID 10 Days Qty: 20 0RF ondansetron 4 mg tablet,disintegrating 4 mg PO Q6H PRN (Reason: nausea and vomiting) Qty: 20 0RF hydrocodone-acetaminophen 5-325 mg tablet 1 tab PO Q4-6H PRN (Reason: pain) Qty: 10 0RF No Action carbidopa-levodopa 25-100 mg Tablet 1.5 tab PO QID Patient Comments: according to patient and spouse he takes this medication at 0430, 10;30, 1430, 1730. entacapone 200 mg Tablet 200 mg PO 5XD Rx Instructions: pt takes this medication at 0430, 1030, 1430, 1730 and 2130 pramipexole 0.25 mg Tablet 0.25 mg PO 4XD Rx Instructions: pt take this medication at 0430m, 1030, 1430 and 1730 pramipexole 1.5 mg Tablet 0.5 mg PO BEDTIME Rx Instructions: pt normally takes it at6 2130 carbidopa-levodopa 50-200 mg Tablet Extended Release 1 tab PO BEDTIME Patient Comments: pt takes this medication at 2130 rasagiline 1 mg Tablet 1 mg PO DAILY Patient Comments: py takes this medication at 0430 omeprazole 25 mg PO 2XD Patient Comments: pt takes this medication at 0430 and 2130 lisinopril 20 mg Tablet 20 mg PO BEDTIME atorvastatin 40 mg Tablet 40 mg PO BEDTIME sertraline 25 mg Tablet 25 mg PO BEDTIME Eliquis 5 mg Tablet 5 mg PO BID Rx Instructions: pt had stopped medication prior to surgery Referrals: Cadence Keene PA-C [Primary Care Provider] - Stand Alone Forms: Patient Portal/API
[2022-07-14 07:58] LABS: Add Manual Diff / Slide Review NO; Basophils Absolute Auto 100 /uL (0-100); Basophils Percent Auto 0.9 % (0-2); Eosinophils Absolute Auto 200 /uL (0-450); Eosinophils Percent Auto 1.8 % (2-4); Hematocrit 42.8 % (41-53); Hemoglobin 14.8 g/dL (13.5-17.5); Lymphocytes Absolute Auto 1700 /uL (1100-4500); Lymphocytes Percent Auto 16.6 % (25-40); Mean Corpuscular HGB Conc 34.6 % (30-36); Mean Corpuscular Hemoglobin 30.5 PG (26-34); Mean Corpuscular Volume 88.1 fL (80-100); Monocytes Absolute Auto 900 /uL (0-900); Monocytes Percent Auto 9.2 % (3-14); Neutrophils Absolute Auto 7200 /uL (1500-7000); Neutrophils Percent Auto 71.5 % (50-75); Platelet Count 193 X10^3/uL (150-400); Red Blood Cell Count 4.85 X10^6/uL (4.5-5.9); Red Cell Distribution Width 13.6 % (11.6-14.8); White Blood Cell Count 10.1 X10^3/uL (4.5-11.0)
[2022-07-14] MEDS: SODIUM CHLORIDE 0.9% 1,000 ML 1000 ML IV (08:05)
[2022-07-14] MEDS: MORPHINE 4 MG/ML INJ IV (08:05)
[2022-07-14] MEDS: ONDANSETRON 4 MG/2 ML INJ IV (08:05)
[2022-07-14 08:15] LABS: Alanine Aminotransferase 11 IU/L (<50); Albumin 4.8 g/dL (3.5-5.0); Albumin Globulin Ratio 1.4 (1.0-2.8); Alkaline Phosphatase 68 U/L (38-126); Aspartate Aminotransferase 28 IU/L (17-59); BUN Creatinine Ratio 19.1 (6-22); Bilirubin Total 1.2 mg/dL (0.2-1.3); Blood Urea Nitrogen 34 mg/dL (9-20); Calcium 9.4 mg/dL (8.4-10.2); Carbon Dioxide 25 mmol/L (22-32); Chloride 97 mmol/L (98-107); Estimated Glomerular Filt Rate 42 mL/min (>60); Globulin 3.5 g/dL (1.7-4.1); Glucose 123 mg/dL (80-110); HEMOLYSIS < 15 (0-50); Lipase 75 U/L (23-300); Potassium 5.1 mmol/L (3.4-5.1); Sodium 129 mmol/L (137-145); Total Protein 8.3 g/dL (6.3-8.2)
[2022-07-14 08:16] LABS: Lactate (Lactic Acid) 1.3 mmol/L (0.7-2.1)
[2022-07-14 08:32] LABS: Procalcitonin 0.11 ng/mL (<0.5)
[2022-07-14 08:48] LABS: Thyroid Stimulating Hormone < 0.015 uIU/mL (0.47-4.68)
[2022-07-14 09:35] LABS: Bacteria Urine Moderate (10-30); Hyaline Casts Urine 1-5/LPF; Mucus Urine 1+ (Negative); RBC Urine 0-1/HPF (0-5/HPF); Squamous Epithelial Cell Urine 0-1 /HPF (0-5/HPF); WBC Urine 1-5/HPF (0-5/HPF)
[2022-07-14 09:36] LABS: Culture Indicated Urine Specimen Cultured
[2022-07-14] MEDS: metroNIDAZOLE 500 MG TABLET PO (11:08)
[2022-07-14] MEDS: CIPROFLOXACIN 250 MG TABLET 500 MG PO (11:09)
[2022-07-16 15:25] LABS: Free T3, Triiodothyronine Free 4.71 pg/mL (2.77-5.27); Free T4, Direct Thyroxine 1.05 ng/dL (0.78-2.19)
== END 2022-07-14 11:51 | disposition home or self-care (01) ==
PROVIDERS: Emergency Provider Emergency Medicine; PCP Physician Assistant
DX: K57.92 Diverticulitis of intestine, part unspecified, without perforation or abscess without bleeding (principal); R10.9 Unspecified abdominal pain
CPT/HCPCS: 36415; 74176; 80053; 81003; 81015; 83605; 83690; 84145; 84439; 84443; 84481; 85025; 87040; 87077; 87086; 93005; 96361; 96374; 96375; 99284; J2270; J2405

== ENCOUNTER → 2022-12-27 13:36 | Outpatient (CLI) | payer BC, SELFPAY ==
[2021-11-25] VITALS: BMI 43.3
== END ==
PROVIDERS: PCP Physician Assistant; Referring Provider Physician Assistant; Visit Provider Physician Assistant
DX: R06.09 Other forms of dyspnea (principal); Z87.891 Personal history of nicotine dependence
CPT/HCPCS: 94060; 94726; 94729

== ENCOUNTER 2023-06-10 16:31 | Observation (INO) | payer BC, SELFPAY ==
[2021-11-25] VITALS: BMI 43.3
[2023-06-10] VITALS (12 sets, daily range): BP systolic 108–137; BP diastolic 54–83; PULSE 82–96; RESP 15–24; TEMP 36.5–36.6; O2SAT 96–98; BMI 44.4
--- NOTE | 2023-06-10 16:50 | DI.RAD.S_ITS ---
PROCEDURE: XR CHEST 1V INDICATIONS: chest pain TECHNIQUE: One view of the chest was acquired. COMPARISON: [facility], CR, XR CHEST 1V, 08/14/2018, 19:25. FINDINGS: Surgical changes and devices: None. Lungs and pleura: Low lung volumes, but lungs are clear. No pleural effusions or pneumothorax. Mediastinum: Mediastinal contours appear normal. Heart size is enlarged. Bones and chest wall: No suspicious bony lesions. Overlying soft tissues appear unremarkable. IMPRESSION: Cardiomegaly. Low lung volumes, but lungs are clear. Approved by: Graciela Keane M.D.,Ph.D. on 06/10/2023 at 17:30
[2023-06-10 17:00] LABS: Add Manual Diff / Slide Review NO; Basophils Absolute Auto 100 /uL (0-100); Basophils Percent Auto 0.9 % (0-2); Eosinophils Absolute Auto 300 /uL (0-450); Eosinophils Percent Auto 3.6 % (2-4); Hematocrit 40.5 % (41-53); Hemoglobin 13.4 g/dL (13.5-17.5); INR 1.2 (0.9-1.3); Lymphocytes Absolute Auto 2100 /uL (1100-4500); Mean Corpuscular Hemoglobin 29.3 PG (26-34); Mean Corpuscular Volume 88.9 fL (80-100); Monocytes Absolute Auto 600 /uL (0-900); Monocytes Percent Auto 7.2 % (3-14); Neutrophils Absolute Auto 5300 /uL (1500-7000); Neutrophils Percent Auto 63.3 % (50-75); Platelet Count 213 X10^3/uL (150-400); Prothrombin Time 13.8 SECONDS (9.4-12.5); Red Blood Cell Count 4.56 X10^6/uL (4.5-5.9); Red Cell Distribution Width 14.2 % (11.6-14.8); White Blood Cell Count 8.4 X10^3/uL (4.5-11.0)
[2023-06-10 17:03] LABS: PTT Partial Thromboplastin Tim 48 SECONDS (25.1-36.5)
[2023-06-10 17:04] LABS: Alanine Aminotransferase 9 IU/L (<50); Albumin 4.4 g/dL (3.5-5.0); Albumin Globulin Ratio 1.2 (1.0-2.8); Alkaline Phosphatase 115 U/L (38-126); Aspartate Aminotransferase 35 IU/L (17-59); BUN Creatinine Ratio 23.3 (6-22); Bilirubin Total 0.6 mg/dL (0.2-1.3); Blood Urea Nitrogen 27 mg/dL (9-20); Calcium 8.9 mg/dL (8.4-10.2); Carbon Dioxide 24 mmol/L (22-32); Chloride 107 mmol/L (98-107); Creatine Kinase 207 U/L (55-170); Estimated Glomerular Filt Rate > 60 mL/min (>60); Globulin 3.7 g/dL (1.7-4.1); Glucose 115 mg/dL (80-110); HEMOLYSIS < 15 (0-50); Lipase 141 U/L (23-300); Potassium 4.7 mmol/L (3.4-5.1); Sodium 136 mmol/L (137-145); Total Protein 8.1 g/dL (6.3-8.2)
--- NOTE | 2023-06-10 17:13 | PC.NURSE ---
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
--- NOTE | 2023-06-10 17:14 | PC.NURSE ---
Pt states he was at work; was driving and had awoken to being in gravel lot to someone waking him up. Pt does not remember falling asleep/passing out. Pt states he might be having short term memory loss or passed out. Pt states he estimates 20-30 min passed by that he does not remember. Pt denies any contributing factors.
[2023-06-10 17:16] LABS: Troponin I < 0.012 ng/mL (0.01-0.034)
--- NOTE | 2023-06-10 18:09 | DI.CT.S_ITS ---
PROCEDURE: CT HEAD/BRAIN WO CON INDICATIONS: memory loss and dizziness TECHNIQUE: Noncontrast 4.5 mm thick angled axial sections acquired from the foramen magnum to the vertex, with coronal and sagittal reformats. For radiation dose reduction, the following was used: automated exposure control, adjustment of mA and/or kV according to patient size. COMPARISON: [facility], MR, MR BRAIN WITH/WITHOUT CONTRAST, 07/17/2022, 14:49. [facility], MR, MR PITUITARY WITH/WITHOUT CONTRAST, 04/24/2023, 10:05. [facility], CR, XR CHEST 1V, 06/10/2023, 16:58. FINDINGS: Image quality: Mild streak artifact can be seen through the skull base. CSF spaces: Basal cisterns are patent. No extra-axial fluid collections. The ventricles are symmetric in size and shape. Brain: No intracranial bleeds or masses. There is cerebral volume loss for age, with resultant ventricular and sulcal prominence. There are periventricular and deep white matter chronic small vessel ischemic changes. There is intracranial internal carotid artery atherosclerosis. Skull and face: Calvarium and visualized facial bones appear intact, without suspicious lesions. Sinuses: Air-fluid levels can be seen within the maxillary sinuses. The paranasal sinuses otherwise appear clear. No abnormal fluid is seen within the mastoid air cells. IMPRESSION: Noncontrast head CT within normal limits for age. Paranasal sinus disease noted. Dictated by: Ramin Wall M.D. on 06/10/2023 at 17:34 Approved by: Ramin Wall M.D. on 06/10/2023 at 17:38
--- NOTE | 2023-06-10 18:55 | ED.GENADULT ---
HPI - General Adult General Chief complaint: Dizziness Stated complaint: just doesn't feel right, dizzy Time Seen by Provider: 06/10/23 17:58 Source: patient and family Mode of arrival: Ambulatory History of Present Illness HPI narrative: Patient is a 68-year-old male who is here for evaluation of an episode that occurred earlier today. He states that he was at work. He was getting to the point where he needed to take his Parkinson's medications. He stated that he got into his truck and drove to the office. He took the medications. 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 He then turned around to go back to the office with them. He states that the next thing that he knows someone was knocking on the window of his truck. He was off to the side of the road. His car was still in Dr. But his foot was on the brake. He was told by the individual standing outside that it looked like he was sleeping. The patient does not remember the event. He was somewhat confused as to how he got into that position but he knew that he was in his truck and who the person was standing outside the truck. He denied any prodromal symptoms to include chest pain, shortness of breath, lightheadedness, palpitations. He states this is never happened to him in the past. He does have history of AFib. Is in AFib all the time. Is on Eliquis for this. He also states that when he stands up he was feeling dizzy. It is not a room spinning sensation but more of a lightheadedness. He states that he feels weak in his lower extremity specifically on the right side. No upper extremity issues. Currently he states he is feeling much better but not completely back to normal. Related Data Home Medications Medication Instructions Recorded Confirmed apixaban 5 mg tablet (Eliquis) 5 mg PO BID 11/25/21 06/10/23 atorvastatin 40 mg tablet 80 mg PO BEDTIME 11/25/21 06/10/23 carbidopa 25 mg-levodopa 100 mg 1.5 tab PO QID 11/25/21 06/10/23 tablet entacapone 200 mg tablet 200 mg PO 5XD 11/25/21 06/10/23 lisinopril 20 mg tablet 5 mg PO BEDTIME 11/25/21 06/10/23 pramipexole 0.25 mg tablet 0.25 mg PO 5XD 11/25/21 06/10/23 rasagiline 1 mg tablet 1 mg PO DAILY 11/25/21 06/10/23 sertraline 25 mg tablet 25 mg PO BEDTIME 11/25/21 06/10/23 carbidopa 25 mg-levodopa 100 mg 3 tab PO BEDTIME 06/10/23 06/10/23 tablet hydrocortisone 5 mg tablet 10 mg PO BID 06/10/23 06/10/23 levothyroxine 75 mcg tablet 50 mcg PO QAM 06/10/23 06/10/23 metoprolol succinate 50 mg 50 mg PO BEDTIME 06/10/23 06/10/23 tablet,extended release 24 hr Allergies Allergy/AdvReac Type Severity Reaction Status Date / Time Penicillins [PENICILLINS] Allergy Severe Anaphylaxis Verified 06/10/23 16:40 Review of Systems Review of Systems ROS Unobtainable: All systems reviewed & are unremarkable except as noted in HPI and below Patient History Medical History Hyperlipidemia BMI 45.0-49.9, adult Left renal mass Aortic stenosis Essential hypertension Atrial fibrillation Parkinsons disease Surgical History (Updated 11/25/21 @ 04:31 by JHONNY Hadley) History of right hip replacement History of left radical nephrectomy Family History (Updated 11/25/21 @ 04:32 by JHONNY Hadley) Mother Congestive heart failure Sister Cancer Brother AIDS Social History household members: spouse Smoking Status: Former smoker alcohol intake: never Smoking Status: Former smoker tobacco type: cigarettes alcohol intake frequency: 0-2 drinks per day Substance Use Type: does not use Exam Initial Vital Signs Initial Vital Signs: Vital Signs Temperature 97.7 F 06/10/23 16:40 Pulse Rate 87 06/10/23 16:40 Respiratory Rate 18 06/10/23 16:40 Blood Pressure 137/83 06/10/23 16:40 Pulse Oximetry 98 06/10/23 16:40 Oxygen Delivery Method Room Air 06/10/23 16:40 Const General: cooperative, comfortable and No ill appearing HENMD Head: normal to inspection and normocephalic Face and sinus: normal facial exam Mouth: oral mucosae normal Eyes Periorbital: periorbital findings normal Pupils: PERRL EOM: EOM intact bilaterally Resp Effort & Inspection: normal respiratory effort Auscultation: clear to auscultation bilaterally Cardio Rate: regular rate Rhythm: abnormal rhythm GI Inspection: normal to inspection Palpation: soft and No tender Skin General: no rashes or lesions noted Neuro General: patient alert, patient awake and patient oriented x3 Cranial Nerves: CN's II-XI intact bilaterally Cognition: normal cognition Speech: speech normal Sensory Exam: no sensory deficits noted Other: 5/5 strength bilateral upper extremities. 4/5 strength left lower extremity, 3/5 strength right lower extremity Extrem General: normal to inspection and capillary refill normal Scores GCS Cele coma scale eye opening: Spontaneous Cele coma scale verbal response: Orientated Cele coma scale motor response: Obey commands Cele coma scale total score: 15 Course Orders Ordered: ED Orders 06/10/23 16:45 Complete Blood Count AUTO DIFF Stat Comprehensive Metabolic Panel Stat Lipase Stat Magnesium Stat PTT Partial Thromboplastin Abdoulaye Stat Prothrombin Time INR Stat Troponin & CK Cardiac Panel Stat 06/10/23 16:50 XR chest 1V Stat EKG-12 Lead Stat 06/10/23 18:09 CT head/brain wo con Stat Covid-19 + FLU A/B + RSV - PCR Stat 06/10/23 18:56 CT angio head and neck Stat Acetaminophen (Acetaminophen 325 Mg Tablet) 650 mg PO Q6H PRN PRN Reason: Fever/Mild Pain (1-3) Apixaban (Apixaban 5 Mg Tablet) 5 mg PO BID AKILA Atorvastatin Calcium (Atorvastatin 20 Mg Tablet) 80 mg PO BEDTIME AKILA Calcium Carbonate (Calcium Carbonate 500 Mg Tab) 1,000 mg PO Q4HR PRN PRN Reason: Dyspepsia Carbidopa/Levodopa (Carbidopa-Levodopa 25/100 Tablet) 3 each PO BEDTIME AKILA Carbidopa/Levodopa (Carbidopa-Levodopa 25/100 Tablet) 1.5 each PO QID AKILA Entacapone (Entacapone 200 Mg Tablet) 200 mg PO 5XD AKILA Hydrocortisone (Hydrocortisone 10 Mg Tablet) 5 mg PO BID AKILA Levothyroxine Sodium (Levothyroxine 50 Mcg Tablet) 50 mcg PO 0600 AKILA Lisinopril (Lisinopril 20 Mg Tablet) 5 mg PO BEDTIME AKILA Metoprolol Succinate (Metoprolol Er 50 Mg Tablet) 50 mg PO BEDTIME AKILA Naloxone HCl (Naloxone 0.4 Mg/Ml Vial) 0.2 mg IV Q2MIN PRN PRN Reason: Opiate Reversal Non-Formulary Medication (Rasagiline) 1 mg PO DAILY AKILA Ondansetron HCl (Ondansetron 4 Mg/2 Ml Inj) 4 mg IV Q8HR PRN PRN Reason: Nausea And Vomiting Pramipexole Dihydrochloride (Pramipexole 0.25 Mg Tablet) 0.25 mg PO 5XD AKILA Sennosides (Sennosides 8.6 Mg Tablet) 17.2 mg PO BEDTIME AKILA Sertraline HCl (Sertraline 50 Mg Tablet) 25 mg PO BEDTIME AKILA Discontinued Medications Sodium Chloride (Normal Saline 0.9%) 1,000 mls @ 1,000 mls/hr IV BOLUS ONE Stop: 06/10/23 19:54 Last Infusion: 06/10/23 20:28 Dose: Infused Documented By: Admin: 06/10/23 19:28 Dose: 1,000 mls/hr Documented By: AYAD Vital Signs Vital signs: Vital Signs - 8 hr 06/10/23 16:40 06/10/23 19:00 06/10/23 19:20 Temperature 97.7 F Pulse Rate 87 87 Respiratory Rate 18 22 Blood Pressure 137/83 127/59 L Pulse Oximetry 98 97 Oxygen Delivery Method Room Air 06/10/23 19:20 06/10/23 19:28 06/10/23 19:28 Temperature Pulse Rate 96 H 90 Respiratory Rate 24 24 Blood Pressure 117/80 Pulse Oximetry 96 96 Oxygen Delivery Method 06/10/23 19:30 06/10/23 19:47 06/10/23 19:47 Temperature Pulse Rate 90 86 Respiratory Rate 23 Blood Pressure 120/64 Pulse Oximetry 97 98 Oxygen Delivery Method 06/10/23 20:00 06/10/23 20:00 06/10/23 20:30 Temperature Pulse Rate 82 86 Respiratory Rate 21 Blood Pressure 126/66 Pulse Oximetry 98 96 Oxygen Delivery Method 06/10/23 20:49 06/10/23 20:49 06/10/23 21:00 Temperature Pulse Rate 96 H 90 Respiratory Rate 21 15 Blood Pressure 121/69 Pulse Oximetry 96 97 Oxygen Delivery Method 06/10/23 21:00 Temperature Pulse Rate Respiratory Rate Blood Pressure 111/54 L Pulse Oximetry Oxygen Delivery Method Medical Decision Making Lab Data Lab results reviewed: Yes I reviewed the patient's lab results. 06/10/23 16:45 06/10/23 16:45 Labs: Lab Results 06/10/23 06/10/23 Range/Units 16:45 18:09 WBC 8.4 (4.5-11.0) X10^3/uL RBC 4.56 (4.5-5.9) X10^6/uL Hgb 13.4 L (13.5-17.5) g/dL Hct 40.5 L (41-53) % MCV 88.9 (80-100) fL MCH 29.3 (26-34) PG MCHC 33.0 (30-36) % RDW 14.2 (11.6-14.8) % Plt Count 213 (150-400) X10^3/uL Neut % (Auto) 63.3 (50-75) % Lymph % (Auto) 25.0 (25-40) % [place]erry % (Auto) 7.2 (3-14) % Eos % (Auto) 3.6 (2-4) % Baso % (Auto) 0.9 (0-2) % Neut # (Auto) 5300 (8691-6805) /uL Lymph # (Auto) 2100 (7577-9805) /uL [place]erry # (Auto) 600 (0-900) /uL Eos # (Auto) 300 (0-450) /uL Baso # (Auto) 100 (0-100) /uL PT 13.8 H (9.4-12.5) SECONDS INR 1.2 (0.9-1.3) APTT 48 H (25.1-36.5) SECONDS Sodium 136 L (137-145) mmol/L Potassium 4.7 (3.4-5.1) mmol/L Chloride 107 (98-107) mmol/L Carbon Dioxide 24 (22-32) mmol/L BUN 27 H (9-20) mg/dL Creatinine 1.16 (0.66-1.25) mg/dL Estimated GFR > 60 (>60) mL/min BUN/Creatinine Ratio 23.3 H (6-22) Glucose 115 H (80-110) mg/dL Calcium 8.9 (8.4-10.2) mg/dL Magnesium 2.0 (1.6-2.3) mg/dL Total Bilirubin 0.6 (0.2-1.3) mg/dL AST 35 (17-59) IU/L ALT 9 (<50) IU/L Alkaline Phosphatase 115 (38-126) U/L Total Creatine Kinase 207 H (55-170) U/L Troponin I < 0.012 (0.01-0.034) ng/mL Total Protein 8.1 (6.3-8.2) g/dL Albumin 4.4 (3.5-5.0) g/dL Globulin 3.7 (1.7-4.1) g/dL Albumin/Globulin Ratio 1.2 (1.0-2.8) Lipase 141 (23-300) U/L SARS-CoV-2 (PCR) Negative (Negative) Influenza A (RT-PCR) Flu a negative (NEGATIVE) Influenza B (RT-PCR) Flu b negative (NEGATIVE) RSV (PCR) Negative (Negative) Urine Dip Bedside Urine Glucose Negative Bedside Urine Bilirubin - Negative Bedside Urine Ketone - Negative Urine Specific [place] 1.010 Bedside Urine Occult Blood - Negative Bedside Urine pH 6.0 Bedside Urine Protein - Negative Bedside Urine Urobilinogen - Negative Bedside Urine Nitrite - Negative Bedside Urine Leukocytes - Negative Esterase Point of care testing: Urine Dip Bedside Urine Glucose Negative Bedside Urine Bilirubin - Negative Bedside Urine Ketone - Negative Urine Specific [place] 1.010 Bedside Urine Occult Blood - Negative Bedside Urine pH 6.0 Bedside Urine Protein - Negative Bedside Urine Urobilinogen - Negative Bedside Urine Nitrite - Negative Bedside Urine Leukocytes - Negative Esterase Imaging Data Chest x-ray: Radiologist's Impression: PROCEDURE: XR CHEST 1V INDICATIONS: chest pain TECHNIQUE: One view of the chest was acquired. COMPARISON: [facility], , XR CHEST 1V, 08/14/2018, 19:25. FINDINGS: Surgical changes and devices: None. Lungs and pleura: Low lung volumes, but lungs are clear. No pleural effusions or pneumothorax. Mediastinum: Mediastinal contours appear normal. Heart size is enlarged. Bones and chest wall: No suspicious bony lesions. Overlying soft tissues appear unremarkable. IMPRESSION: Cardiomegaly. Low lung volumes, but lungs are clear. CT scan - head: Radiologist's Impression: PROCEDURE: CT HEAD/BRAIN WO CON INDICATIONS: memory loss and dizziness TECHNIQUE: Noncontrast 4.5 mm thick angled axial sections acquired from the foramen magnum to the vertex, with coronal and sagittal reformats. For radiation dose reduction, the following was used: automated exposure control, adjustment of mA and/or kV according to patient size. COMPARISON: [facility], MR, MR BRAIN WITH/WITHOUT CONTRAST, 07/17/2022, 14:49. [facility], MR, MR PITUITARY WITH/WITHOUT CONTRAST, 04/24/2023, 10:05. [facility], CR, XR CHEST 1V, 06/10/2023, 16:58. FINDINGS: Image quality: Mild streak artifact can be seen through the skull base. CSF spaces: Basal cisterns are patent. No extra-axial fluid collections. The ventricles are symmetric in size and shape. Brain: No intracranial bleeds or masses. There is cerebral volume loss for age, with resultant ventricular and sulcal prominence. There are periventricular and deep white matter chronic small vessel ischemic changes. There is intracranial internal carotid artery atherosclerosis. Skull and face: Calvarium and visualized facial bones appear intact, without suspicious lesions. Sinuses: Air-fluid levels can be seen within the maxillary sinuses. The paranasal sinuses otherwise appear clear. No abnormal fluid is seen within the mastoid air cells. IMPRESSION: Noncontrast head CT within normal limits for age. Paranasal sinus disease noted. CTA - brain/neck: Radiologist's Impression: PROCEDURE: CT ANGIO HEAD AND NECK INDICATIONS: LOC with r leg pain TECHNIQUE: After the administration of intravenous contrast, 1 mm thick sections acquired from the aortic arch through the [place] of [place]. 3-dimensional [id number] (MIP) and/or volume rendering reformats were acquired of the central intracranial vasculature and neck separately. For radiation dose reduction, the following was used: automated exposure control, adjustment of mA and/or kV according to patient size. COMPARISON: Same-day CT head noncontrast 06/10/2023. FINDINGS: Image quality: Diagnostic. BRAIN: CSF spaces: Ventricles are normal in size and shape. Basal cisterns are patent. No extra-axial fluid collections. Brain: No significant abnormality of the brain can be seen. Skull and face: Calvarium and facial bones appear intact, without suspicious lesions. Orbits appear normal. Sinuses: Sinuses and mastoids are clear. HEAD CT ANGIOGRAPHY: Anterior circulation: Intracranial internal carotid arteries are normal in size and flow. Minimal calcifications of the bilateral carotid siphons. Hypoplastic right A1 OFELIA segment. Remainder of the flow within the paired anterior cerebral arteries is normal and symmetric. The flow within the middle cerebral arteries is normal and symmetric. The anterior communicating artery is seen. No aneurysms are seen. Posterior circulation: Visualized portions of the vertebral arteries demonstrate normal caliber, and join to form a normal appearing basilar artery. Flow within the posterior cerebral arteries is normal and symmetric. No aneurysms are seen. NECK CT ANGIOGRAPHY: Carotid system: The great vessels demonstrate a conventional anatomy as they arise from the aortic arch. The origins of the common carotid arteries appear patent. The common carotid arteries demonstrate normal caliber and courses. Mild calcifications of the carotid bulbs without flow-limiting stenosis. The internal carotid arteries demonstrate normal calibers and courses. Posterior circulation: The origins of the vertebral arteries both appear widely patent. The more superior extracranial portions of both vertebral arteries also demonstrate normal courses and calibers. They join to form a normal appearing basilar artery. Soft tissues: Visualized neck soft tissues demonstrate no suspicious abnormalities. Bones: No suspicious bony lesions. Visualized cervical spine appears normally aligned. IMPRESSION: No significant intracranial arterial abnormality is seen. No significant abnormality is seen within the arteries of the neck. MDM Narrative Medical decision making narrative: Patient had what appears to be a syncopal episode or at least a period of time where he has amnesia of the event. Her low suspicion that this was a seizure as he did not have a postictal event. He had no prodromal symptoms. He is now having objective weakness to his right lower extremity. He was unable to stand at bedside and even walk because of this weakness. He has no other focal neurologic deficits. No headache. He is in AFib but is rate controlled. Head CT and cervical spine CT are relatively unremarkable. Patient does require further evaluation to include period of time of cardiac monitoring and also MRI. I did discuss the need for admission with the patient. He expressed understanding and agreement. Discussed the admission with Dr. Dickinson hospitalist on-call who will admit further evaluation and treatment. Discharge Plan Departure Patient Disposition: Admitted as Observation Clinical Impression: Syncope, Right leg weakness Admit Date/Time: 06/10/23 21:10 Admit Provider: Nithin Dickinson
[2023-06-10 19:13] LABS: Influenza A - CEPHEID Flu A NEGATIVE (NEGATIVE); Influenza B - CEPHEID Flu B NEGATIVE (NEGATIVE); Respiratory Syncytial Virus Negative (Negative)
[2023-06-10 19:25] LABS: COVID-19 CEPHEID 4-PLEX PCR Negative (Negative)
[2023-06-10] MEDS: SODIUM CHLORIDE 0.9% 1,000 ML 1000 ML IV (19:28)
--- NOTE | 2023-06-10 20:10 | PC.NURSE ---
Patient up to ambulate with this RN, patient states dizziness thoughout and worse dizziness when looking up. Patient with difficulty moving right leg and states it feels heavy, like I cant' move. Patient appears unsteady, unable to ambulate without wobbling. Physician aware
--- NOTE | 2023-06-10 21:28 | DI.MRI.S_ITS ---
PROCEDURE: MR HEAD/BRAIN WO CON INDICATIONS: RLE weakness, amnesia TECHNIQUE: Non-contrast axial T1 spin echo, axial T2 fast spin echo, sagittal and axial FLAIR, coronal T2 fast spin echo, axial gradient echo, axial diffusion and ADC through the brain. COMPARISON: [facility], CT, CT HEAD/BRAIN WO CON, 06/10/2023, 18:13. [facility], MR, MR PITUITARY WITH/WITHOUT CONTRAST, 04/24/2023, 10:05. [facility], MR, MR PITUITARY WITH/WITHOUT CONTRAST, 09/12/2022, 11:38. [facility], MR, MR BRAIN WITH/WITHOUT CONTRAST, 07/17/2022, 14:49. FINDINGS: Image quality: Excellent. CSF spaces: Ventricles appear symmetric in size and shape. Basal cisterns are patent. No extra-axial fluid collections. Brain: No intracranial bleeds or mass effects. There is cerebral volume loss for age. There are mild, age-appropriate periventricular and deep white matter chronic small vessel ischemic changes. Brainstem appears normal. Diffusion-weighted images show no acute infarct. No chronic ischemic insults. Normal intravascular flow voids are present. Skull and face: Calvarial bone marrow is normal in signal. Orbits are normal. Sinuses: Small bilateral maxillary sinus air-fluid levels, better seen on CT. Mastoids are clear. IMPRESSION: No acute intracranial process. Mild bilateral acute maxillary sinusitis. Dictated by: Dejuan Landa M.D. on 06/11/2023 at 11:06 Approved by: Dejuan Landa M.D. on 06/11/2023 at 11:12
--- NOTE | 2023-06-10 22:32 | PC.ADMIT ---
[email or web address] Admission Note: Patient admitted to AC unit from ED at 21:48. Alert and oriented x 4, however, does report history of hallucinations. Stand pivot to bed with 2PA. Oriented to room and call light, bed in low, locked position and call light within reach. Bed alarm on for safety. Daughter at bedside. The patient,Mychal German,68 y/o, was given written information regarding hospital policies, unit procedures and contact persons. Patient's smoking status: Former smoker. Vital Signs - 8 hr 06/10/23 16:40 06/10/23 19:00 06/10/23 19:20 Temperature 97.7 F Pulse Rate 87 87 Respiratory Rate 18 22 Blood Pressure 137/83 127/59 L Pulse Oximetry 98 97 Oxygen Delivery Method Room Air Oxygen Flow Rate 06/10/23 19:20 06/10/23 19:28 06/10/23 19:28 Temperature Pulse Rate 96 H 90 Respiratory Rate 24 24 Blood Pressure 117/80 Pulse Oximetry 96 96 Oxygen Delivery Method Oxygen Flow Rate 06/10/23 19:30 06/10/23 19:47 06/10/23 19:47 Temperature Pulse Rate 90 86 Respiratory Rate 23 Blood Pressure 120/64 Pulse Oximetry 97 98 Oxygen Delivery Method Oxygen Flow Rate 06/10/23 20:00 06/10/23 20:00 06/10/23 20:30 Temperature Pulse Rate 82 86 Respiratory Rate 21 Blood Pressure 126/66 Pulse Oximetry 98 96 Oxygen Delivery Method Oxygen Flow Rate 06/10/23 20:49 06/10/23 20:49 06/10/23 21:00 Temperature Pulse Rate 96 H 90 Respiratory Rate 21 15 Blood Pressure 121/69 Pulse Oximetry 96 97 Oxygen Delivery Method Oxygen Flow Rate 06/10/23 21:00 06/10/23 21:30 06/10/23 21:30 Temperature Pulse Rate 85 Respiratory Rate 24 Blood Pressure 111/54 L 108/75 Pulse Oximetry 98 Oxygen Delivery Method Oxygen Flow Rate 06/10/23 21:50 Temperature 97.9 F Pulse Rate 84 Respiratory Rate 16 Blood Pressure 126/81 Pulse Oximetry 98 Oxygen Delivery Method Oxygen Flow Rate 0
[2023-06-10 23:12] LABS: Cholesterol 164 mg/dL (140-199); HDL Cholesterol 41 mg/dL (40-60); LDL Cholesterol Calculated 68 mg/dL (<100); Triglycerides 276 mg/dL (35-150)
--- NOTE | 2023-06-10 23:13 | P.HP_ITS ---
History of Present Illness History of Present Illness Chief complaint: just doesn't feel right, dizzy Narrative: The pt is a 68 yo with a hx of Parkinson's and a-fib who went to work today without any complaints but when he went back to his office to take his Sinemet he lost all memory and was found by a co-worker in his running car in [place] with his foot on the brake. He does not remember about a half an hour of time. He states he felt dizzy and generalized weakness and drove to the ER. In the ER, he started noticing weakness in his right leg. During my interview and exam, he could onlylift his leg a few inches above the bed. He denies any numbness or pain in the right leg, he has never had anything like this before. He denies any recent illness, takes his home meds very faithfully, no recent fevers, chills, N/V/D. He denies any confusion, trouble with speech, vision, FUENTES, PFSH Medical History Hyperlipidemia BMI 45.0-49.9, adult Left renal mass Aortic stenosis Essential hypertension Atrial fibrillation Parkinsons disease Surgical History (Updated 11/25/21 @ 04:31 by JHONNY Hadley) History of right hip replacement History of left radical nephrectomy Family History (Updated 11/25/21 @ 04:32 by JHONNY Hadley) Mother Congestive heart failure Sister Cancer Brother AIDS Social History household members: spouse Smoking Status: Former smoker alcohol intake: never Meds Home Medications and Allergies Home Medications Medication Instructions Recorded Confirmed Type apixaban 5 mg tablet (Eliquis) 5 mg PO BID 11/25/21 06/10/23 History atorvastatin 40 mg tablet 80 mg PO BEDTIME 11/25/21 06/10/23 History carbidopa 25 mg-levodopa 100 mg 1.5 tab PO QID 11/25/21 06/10/23 History tablet entacapone 200 mg tablet 200 mg PO 5XD 11/25/21 06/10/23 History lisinopril 20 mg tablet 5 mg PO BEDTIME 11/25/21 06/10/23 History pramipexole 0.25 mg tablet 0.25 mg PO 5XD 11/25/21 06/10/23 History rasagiline 1 mg tablet 1 mg PO DAILY 11/25/21 06/10/23 History sertraline 25 mg tablet 25 mg PO BEDTIME 11/25/21 06/10/23 History carbidopa 25 mg-levodopa 100 mg 3 tab PO BEDTIME 06/10/23 06/10/23 History tablet hydrocortisone 5 mg tablet 10 mg PO BID 06/10/23 06/10/23 History levothyroxine 75 mcg tablet 50 mcg PO QAM 06/10/23 06/10/23 History metoprolol succinate 50 mg 50 mg PO BEDTIME 06/10/23 06/10/23 History tablet,extended release 24 hr Allergies Allergy/AdvReac Type Severity Reaction Status Date / Time Penicillins [PENICILLINS] Allergy Severe Anaphylaxis Verified 06/10/23 16:40 Exam Vital Signs (past 8 hours): - 06/10/23 16:40 06/10/23 19:00 06/10/23 19:20 Temperature 97.7 F Pulse Rate 87 87 Respiratory Rate 18 22 Blood Pressure 137/83 127/59 L Pulse Oximetry 98 97 Oxygen Delivery Method Room Air Oxygen Flow Rate 06/10/23 19:20 06/10/23 19:28 06/10/23 19:28 Temperature Pulse Rate 96 H 90 Respiratory Rate 24 24 Blood Pressure 117/80 Pulse Oximetry 96 96 Oxygen Delivery Method Oxygen Flow Rate 06/10/23 19:30 06/10/23 19:47 06/10/23 19:47 Temperature Pulse Rate 90 86 Respiratory Rate 23 Blood Pressure 120/64 Pulse Oximetry 97 98 Oxygen Delivery Method Oxygen Flow Rate 06/10/23 20:00 06/10/23 20:00 06/10/23 20:30 Temperature Pulse Rate 82 86 Respiratory Rate 21 Blood Pressure 126/66 Pulse Oximetry 98 96 Oxygen Delivery Method Oxygen Flow Rate 06/10/23 20:49 06/10/23 20:49 06/10/23 21:00 Temperature Pulse Rate 96 H 90 Respiratory Rate 21 15 Blood Pressure 121/69 Pulse Oximetry 96 97 Oxygen Delivery Method Oxygen Flow Rate 06/10/23 21:00 06/10/23 21:30 06/10/23 21:30 Temperature Pulse Rate 85 Respiratory Rate 24 Blood Pressure 111/54 L 108/75 Pulse Oximetry 98 Oxygen Delivery Method Oxygen Flow Rate 06/10/23 21:50 Temperature 97.9 F Pulse Rate 84 Respiratory Rate 16 Blood Pressure 126/81 Pulse Oximetry 98 Oxygen Delivery Method Oxygen Flow Rate 0 Oxygen Delivery Method Room Air Oxygen Flow Rate 0 Const General: cooperative, healthy appearing and comfortable Nutritional Appearance: obese Resp Auscultation: clear to auscultation bilaterally Cardio Rate: tachycardic Rhythm: abnormal rhythm GI Auscultation: normal bowel sounds Neuro General: patient alert, patient awake and patient oriented x3 Cognition: normal cognition Speech: speech normal Motor: strength abnormal Other: significant weakness in the RLE Objective Labs 06/10/23 16:45 06/10/23 16:45 Labs: Laboratory Results - last 24 hr 06/10/23 06/10/23 16:45 18:09 WBC 8.4 RBC 4.56 Hgb 13.4 L Hct 40.5 L MCV 88.9 MCH 29.3 MCHC 33.0 RDW 14.2 Plt Count 213 Neut % (Auto) 63.3 Lymph % (Auto) 25.0 [place] % (Auto) 7.2 Eos % (Auto) 3.6 Baso % (Auto) 0.9 Neut # (Auto) 5300 Lymph # (Auto) 2100 [place] # (Auto) 600 Eos # (Auto) 300 Baso # (Auto) 100 PT 13.8 H INR 1.2 APTT 48 H Sodium 136 L Potassium 4.7 Chloride 107 Carbon Dioxide 24 BUN 27 H Creatinine 1.16 Estimated GFR > 60 BUN/Creatinine Ratio 23.3 H Glucose 115 H Calcium 8.9 Magnesium 2.0 Total Bilirubin 0.6 AST 35 ALT 9 Alkaline Phosphatase 115 Total Creatine Kinase 207 H Troponin I < 0.012 Total Protein 8.1 Albumin 4.4 Globulin 3.7 Albumin/Globulin Ratio 1.2 Lipase 141 SARS-CoV-2 (PCR) Negative Influenza A (RT-PCR) Flu a negative Influenza B (RT-PCR) Flu b negative RSV (PCR) Negative Assessment & Plan Assessment & Plan narrative: 1. Weakness in the RLE- CT scan reviewed and is normal, CTA normal, I discussed the pt's case and presenting symptoms with the ER provider and agree with the decision for admission. MRI of the head ordered for the morning, PT/OT consulted. no difficulty with speech or swallowing at this time. I cannot explain the 30 minutes of amnesia, uncertain significance. 2. Parkinson's - home meds reviewed and will restart meds, will have pharmacy look into if his home meds could contribute to his symptoms. 3. Atrial FIbrillation- continue home Eliquis/ Metoprolol, rate controlled, Quality VTE Deep Vein Thrombosis/Pulmonary Embolism Present on Admission: No
[2023-06-11] VITALS (10 sets, daily range): BP systolic 105–126; BP diastolic 42–76; PULSE 61–90; RESP 16–18; TEMP 36.3–36.6; O2SAT 96–98
[2023-06-11] MEDS: ENTACAPONE 200 MG TABLET PO ×5 (04:36→21:31)
[2023-06-11] MEDS: CARBIDOPA-LEVODOPA 25/100 TABLET 1.5 EACH PO ×4 (04:36→17:33)
[2023-06-11] MEDS: PRAMIPEXOLE 0.25 MG TABLET PO ×5 (04:38→21:35)
[2023-06-11] MEDS: LEVOTHYROXINE 50 MCG TABLET PO (05:02)
[2023-06-11 05:33] LABS: Add Manual Diff / Slide Review NO; Basophils Absolute Auto 0 /uL (0-100); Basophils Percent Auto 0.8 % (0-2); Eosinophils Absolute Auto 300 /uL (0-450); Eosinophils Percent Auto 4.6 % (2-4); Hemoglobin 13.1 g/dL (13.5-17.5); Lymphocytes Absolute Auto 1700 /uL (1100-4500); Lymphocytes Percent Auto 30.7 % (25-40); Mean Corpuscular HGB Conc 33.5 % (30-36); Mean Corpuscular Hemoglobin 29.8 PG (26-34); Monocytes Absolute Auto 400 /uL (0-900); Neutrophils Absolute Auto 3100 /uL (1500-7000); Neutrophils Percent Auto 55.9 % (50-75); Platelet Count 180 X10^3/uL (150-400); Red Blood Cell Count 4.38 X10^6/uL (4.5-5.9); Red Cell Distribution Width 14.5 % (11.6-14.8); White Blood Cell Count 5.6 X10^3/uL (4.5-11.0)
[2023-06-11 05:48] LABS: Alanine Aminotransferase 8 IU/L (<50); Albumin 3.9 g/dL (3.5-5.0); Albumin Globulin Ratio 1.2 (1.0-2.8); Alkaline Phosphatase 100 U/L (38-126); Aspartate Aminotransferase 30 IU/L (17-59); BUN Creatinine Ratio 21.8 (6-22); Bilirubin Total 0.7 mg/dL (0.2-1.3); Blood Urea Nitrogen 22 mg/dL (9-20); Calcium 8.6 mg/dL (8.4-10.2); Carbon Dioxide 23 mmol/L (22-32); Chloride 111 mmol/L (98-107); Estimated Glomerular Filt Rate > 60 mL/min (>60); Globulin 3.2 g/dL (1.7-4.1); Glucose 98 mg/dL (80-110); HEMOLYSIS < 15 (0-50); Potassium 4.1 mmol/L (3.4-5.1); Sodium 138 mmol/L (137-145); Total Protein 7.1 g/dL (6.3-8.2)
[2023-06-11] MEDS: APIXABAN 5 MG TABLET PO ×2 (09:23→21:35)
[2023-06-11] MEDS: HYDROCORTISONE 10 MG TABLET 5 MG PO ×2 (09:25→21:35)
--- NOTE | 2023-06-11 14:00 | PT.IIE ---
Surgical History (Last Updated 11/25/21 @ 04:31 by Susan Lyons [facility]) History of left radical nephrectomy History of right hip replacement Medical History (Last Reviewed 06/10/23 @ 23:13 by Nithin Galo DO) Aortic stenosis Atrial fibrillation BMI 45.0-49.9, adult Essential hypertension Hyperlipidemia Left renal mass Parkinsons disease Physical Therapy Inpatient Evaluation/Re-Eval M1 PT/OT-IP Prior Functional Status Start: 06/11/23 17:00 Freq: NEEDED Status: Active Protocol: Document 06/11/23 14:00 AB (Rec: 06/11/23 17:21 AB [id number]) Medical Review Prior Functional Status Medical History Reviewed Yes Communication able to make needs known Mobility and Gait pt stated that he was modified independent with all mobilities and ambulation without AD but occasionally uses a 4WW for outdoor mobility Social History Household Members spouse Living Arrangements RV Number of Floors (Floors) One Floor Number of Stairs To Enter/Railing? 4 steps B rails to enter the house has 3 steps without rails to get to bedroom Home Environment Standard Height Toilet,Walk in Shower,Built-In Shower Seat Home Equipment Front Wheel Walker,Four Wheel Walker,Straight Cane,Bedside Commode,Hand Held Shower,Grab Bars In Shower Additional Social History Comment pt stated that he works at the [employer] M2 PT-IP Current Condition Start: 06/11/23 17:00 Freq: NEEDED Status: Active Protocol: Document 06/11/23 14:00 AB (Rec: 06/11/23 17:21 AB [id number]) Physical Therapy Current Condition Current Condition Evaluation Date 06/11/23 Treatment Diagnosis syncope; R sided weakness; difficulty in walking Onset Date 06/10/23 M3 PT-IP Subjective Start: 06/11/23 17:00 Freq: NEEDED Status: Active Protocol: Document 06/11/23 14:00 AB (Rec: 06/11/23 17:21 AB [id number]) Subjective Physical Therapy Visit Type Type Initial Evaluation Visit Start Time 14:00 Visit Stop Time 15:15 Number of MANAGER OF LOSS [employer]VENTION OPERATIONS Visits 0 Physical Therapy Visit Comments Patient Comments pt is agreeable to do PT M4 PT-IP Mobility and Gait Start: 06/11/23 17:00 Freq: NEEDED Status: Active Protocol: Document 06/11/23 14:00 AB (Rec: 06/11/23 17:21 AB [id number]) PT-Bed Mobility Assessment Supine to Sit Supine to Sit Standby Assistance PT-Transfer Assessment Sit to and From Stand Sit to and from Stand Contact Guard Assistance, Minimal Assistance,1 Person Assistance,Use of Upper Extremities Equipment Transfer Assistive Device Gait Belt,Front Wheeled Walker Orthotic/Prosthetic Devices or Brace: No Transfers Transfer Destination Chair,Toilet Transfer Technique anmbulated Transfer Ability Level of Assist Contact Guard Assistance, Minimal Assistance,1 Person Assistance,Use of Upper Extremities Comments Mobility Comments pt supine in bed and family in room but left after a few minutes. obtained PLOF and home set up from pt. pt stated that the doctor informed him that MRI of the brain is unremarkable and that he will get x-ray of his spine to determine cause of R sided weakness. pt completed supine to sit SBA . able to sit on EOB SBA. completed sit to stand min A and cues. pt ambulated in room using 25 ft FWW CGA to min A and cues for R quads activation. pt with R knee buckling and cued to stabilize . educated pt regarding steadiness and RLE stability. assessed ambulation without AD and pt completed ~ 5 ft mod A and max cues. presents with increase unsteadiness and R knee buckling. recommending use of FWW at this time and pt agreed. pt sat on the chair and rested. pt agreed to do steps. simulated up/down stairs in room using FWW for support. pt completed up/down step stool holding on to FWW for support requiring CGA to min A and max cues for techniques and safety. pt completed x 2 sets . educated pt on how to do steps using SPC for support and completed requiring min A and cues. pt repeated 2 sets. pt sat back on chair. pt then requested to use the toilet. sit to stand from the chair CGA and ambulated to the toilet using fWW CGA and cues for quads contraction. pt was able to maintain standing using FWW for support while using the toilet. pt ambulated towards the sink using FWW CGA and cues. able to maitain standing balance using FWW for support CGA while completing handwashing. pt ambulated to chair using FWW CGA. positioned pt on the chair. call light and table placed within reach. caregiver training set up tomorrow at 11 am. Gait Assessment Gait Gait Assistance Required: Contact Guard Assist,Minimum Assistance,Moderate Assistance Distance (Feet) 25 Able to Maintain Weight Bearing Status Yes During Gait Assistive Devices Assistive Device None,Gait Belt,Front Wheeled Walker Orthotic/Prosthetic Devices or Brace: No Gait Deviations General Gait Pattern Decreased Stride Length, Decreased Feet Clearance Factors Limiting Gait Function Factors Limiting Gait Function Decreased Activity Tolerance, Decreased Strength,Poor Balance,Poor Safety Awareness Stair Climbing Assessment Devices Stair Climbing Assistive Devices Straight Cane,Front Wheel Walker Technique/Endurance Stair Climbing Direction Ascend and Descend Stair Climbing Technique Step to Step Number of Steps Climbed 1 Query Text: Stair Climbing Set # Repetitions (reps) 4 PT-Balance Assessment Sitting Balance and Reactions Static Sitting Balance Ability Good Dynamic Sitting Balance Ability Good Standing Balance and Reactions Static Standing Balance Ability Fair Dynamic Standing Balance Ability Fair Device Used FWW M5 PT-IP Objective Assessments Start: 06/11/23 17:00 Freq: NEEDED Status: Active Protocol: Document 06/11/23 14:00 AB (Rec: 06/11/23 17:21 [id number]) Orientation Orientation/Cognition Level of Alertness Alert Orientation Name,Place,Situation Language Function Ability No Deficits Noted Safety Awareness Decreased Safety Awareness Memory Description No Deficits Noted Gross Range of Motion Lower Extremity ROM Assessment Within Functional Limits Strength Lower Extremity Strength Assessment Right Impaired Hip 3+/5 Knee 3+/5 Sensation Assessment Sensation Gross Sensation Right UE Impaired Sensation Description Numbness Comments Sensation Comments c/o R UE (elbow to fingers) numbness Muscle Tone Muscle Tone WNL Yes M6 PT-IP Treatment Start: 06/11/23 17:00 Freq: NEEDED Status: Active Protocol: Document 06/11/23 14:00 AB (Rec: 06/11/23 17:21 AB [id number]) Physical Therapy Treatment Education Education Provided Safety M7 PT-IP Assessment and Plan Start: 06/11/23 17:00 Freq: NEEDED Status: Active Protocol: Document 06/11/23 14:00 AB (Rec: 06/11/23 17:21 AB [id number]) PT Summary Assessment and Plan Potential Rehabilitation Potential Fair Status of Condition at Evaluation Evolving Summary Impairments Pain,ROM,Strength,Balance, Coordination,Sensation,Tone, Cognition,Bed Mobility, Transfers,Gait,Activity Tolerance Assessment Summary pt is a 68 y/o M who presented to the ED due to syncope. pt stated that he was able to walk to the ED initially then afterwards, he had R sided weakness. Brain MRI is unremarkable for CVA. pt requiring CGA to min A with ambulation using FWW and requiring mod A for ambulation without AD with (+) R knee buckling. pt will require assistance at home. Caregiver training set up for tomorrow at 11am. pt also needed to complete stair training again with spouse to assist. pt stated that he was going to outpt PT before for his parkinson's dse but has to stop due to scheduling availability with the outpt clinic. pt will need further PT upon d/c. Goals Bed Mobility Goal Independent Transfer Goal Independent,Front Wheeled Walker Gait Goal Independent,Front Wheel Walker Gait Distance 250 Other Goals improve transfers and ambulation using LRAD >300 ft mod i up/down 4 steps B rails mod I up/down 3 steps using SPC SBA Days to Meet Goals 10 Frequency of Treatment Frequency Of Treatment Once a Day Treatment Plan Physical Therapy Treatment Plan Bed Mobility Training,Transfer Training,Gait Training, Therapeutic Exercise,Balance Retraining,Discharge Planning, Hot or Cold Pack,Neuromuscular Re-ed,Coordination Retraining ,Manual Therapy Precautions Other Precautions falls Recommendations To Nursing Amount of Assist Needed 1 Person Assist Discharge Recommendations PT Discharge Recommendations Home with Assistance, Outpatient PT Transportation Needs at Discharge Private Vehicle
--- NOTE | 2023-06-11 15:29 | P.PN_ITS ---
Subjective Subjective Interval history: 68 M admitted with R leg weakness. MRI today negative for acute infarct. He has no back pain, no recent changes to parkinson's medications. He reports his weakness is improved. He states he remembers feeling dizzy prior to his period of unresponsiveness / memory loss. He denies palpitations or shortness of breath. He was treated recently for gout attack a couple of days ago but swelling has improved. Exam Vital Signs (past 8 hours): - 06/11/23 07:52 06/11/23 07:52 06/11/23 07:59 Temperature 97.4 F L Pulse Rate 61 Respiratory Rate 18 Blood Pressure 109/42 L Pulse Oximetry 96 96 Oxygen Delivery Method Room Air Room Air Oxygen Flow Rate 06/11/23 12:00 Temperature 97.5 F L Pulse Rate 90 Respiratory Rate 18 Blood Pressure 105/55 L Pulse Oximetry 96 Oxygen Delivery Method Oxygen Flow Rate 0 Oxygen Delivery Method Room Air Oxygen Flow Rate 0 Narrative Exam Narrative: Gen: awake, alert, no acute distress CV: irregularly irregular with normal rate, no murmurs Pulm: CTA B/L Abd: S NT ND Ext: no edema or joint effusions Objective Labs 06/11/23 05:14 06/11/23 05:14 Labs: Laboratory Results - last 24 hr 06/10/23 06/10/23 06/11/23 16:45 18:09 05:14 WBC 8.4 5.6 RBC 4.56 4.38 L Hgb 13.4 L 13.1 L Hct 40.5 L 39.0 L MCV 88.9 89.0 MCH 29.3 29.8 MCHC 33.0 33.5 RDW 14.2 14.5 Plt Count 213 180 Neut % (Auto) 63.3 55.9 Lymph % (Auto) 25.0 30.7 [place] % (Auto) 7.2 8.0 Eos % (Auto) 3.6 4.6 H Baso % (Auto) 0.9 0.8 Neut # (Auto) 5300 3100 Lymph # (Auto) 2100 1700 [place] # (Auto) 600 400 Eos # (Auto) 300 300 Baso # (Auto) 100 0 PT 13.8 H INR 1.2 APTT 48 H Sodium 136 L 138 Potassium 4.7 4.1 Chloride 107 111 H Carbon Dioxide 24 23 BUN 27 H 22 H Creatinine 1.16 1.01 Estimated GFR > 60 > 60 BUN/Creatinine Ratio 23.3 H 21.8 Glucose 115 H 98 Calcium 8.9 8.6 Magnesium 2.0 Total Bilirubin 0.6 0.7 AST 35 30 ALT 9 8 Alkaline Phosphatase 115 100 Total Creatine Kinase 207 H Troponin I < 0.012 Total Protein 8.1 7.1 Albumin 4.4 3.9 Globulin 3.7 3.2 Albumin/Globulin Ratio 1.2 1.2 Triglycerides 276 H Cholesterol 164 LDL Cholesterol, Calc 68 HDL Cholesterol 41 Lipase 141 SARS-CoV-2 (PCR) Negative Influenza A (RT-PCR) Flu a negative Influenza B (RT-PCR) Flu b negative RSV (PCR) Negative [facility] Medical History Hyperlipidemia BMI 45.0-49.9, adult Left renal mass Aortic stenosis Essential hypertension Atrial fibrillation Parkinsons disease Surgical History (Updated 11/25/21 @ 04:31 by JHONNY Hadley) History of right hip replacement History of left radical nephrectomy Family History (Updated 11/25/21 @ 04:32 by JHONNY Hadley) Mother Congestive heart failure Sister Cancer Brother AIDS Social History household members: spouse Smoking Status: Former smoker alcohol intake: never Assessment & Plan Assessment & Plan narrative: 1. R leg weakness - MRI negative for acute infarcts, but does not completely rule out CVA or TIA. His R leg weakness could be due to spinal pathology, musculoskeletal or joint related issue with recent gout flare, or spasticity with regards to his parkinson's disease possibly. It is also possible that he was orthostatic, or had arrythmia but his time course does not line up with this. Will continue to monitor with tele for possible arrythmia. - He also reports R hand numbness, but on exam sensation to light touch intact. No facial droop. - depending on progress consider back imaging - ideally continue PT/OT, hopeful for discharge home and will likely need outpatient neurology follow up with his neurologist Dr. Cabral. 2. Parkinson's disease - continue home sinemet, and other medications 3. Chronic atrial fibrillation on anticoagulation. - continue home metoprolol and eliquis. 4. Essential hypertension, chronic, present on admission 5. Hyperlipidemia, chronic, present on admission 6. GERD, chronic, present on admission 7. Morbid obesity as evidence by BMI of 44.5, acute on chronic, present on admission Code: full, surrogate is patient's spouse DVT: on AC Dispo: continue PT/OT, depending on above evaluation possible discharge home vs rehab. Additional history was obtained from patient's spouse. discussed with case management and previous hospitalist whom admitted the patient. Quality VTE Deep Vein Thrombosis/Pulmonary Embolism Present on Admission: No
--- NOTE | 2023-06-11 16:00 | CM.DANOTE ---
DCP Assessment Note- brief Pt is a 68yo M here following syncope/leg weakness/period of lost memory. PMH of parkinson's. PCP Cadence Keene Payer [employer] and self pay [employer] reviewed EMR. Per provider PN, MRI negative for acute infarct. remaining potential for CVA vs TIA. PT/OT evals pending at this time. Per chart review, pt is a man from [place], l[place] enrique Hernandez ([phone]) at home. 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 [employer] unable to meet with pt today due to triaging needs. CM team will continue to follow closely for PT/OT recs. Anticipate home with family when medically stable. CM team will follow closely for CM needs/barriers to safe discharge home. LIZZY Pollard Discharge Planning/Care Management CM Discharge Assessment Start: 06/11/23 15:59 Freq: Status: Active Protocol: Document 06/11/23 15:59 (Rec: 06/11/23 16:00 [id number]) Discharge Planning Assessment Assigned [employer] LIZZY Pierson DPOA/Assigned Designee Name tung Hernandez Contact Information [phone] Advance Directives? No History Provided By Patient,Family Member,Medical Record Prior Living Arrangements House Household Members spouse Type of transporation used prior to Drives own vehicle admit Independent with ADL's Yes Is patient alert and oriented? Yes Discharge Plan Home Transportation Arrangement Spouse Referrals Initiated None needed Whiteboard Updated in Patient Room with No name and ext. # of Layer [employer] Review Status In Process Next Review Type Continued Stay Review
[2023-06-11] MEDS: lisinopriL 20 MG TABLET 5 MG PO (21:31)
[2023-06-11] MEDS: METOPROLOL ER 50 MG TABLET PO (21:33)
[2023-06-11] MEDS: SERTRALINE 50 MG TABLET 25 MG PO (21:34)
[2023-06-11] MEDS: CARBIDOPA-LEVODOPA 25/100 TABLET 3 EACH PO (21:34)
[2023-06-11] MEDS: SENNOSIDES 8.6 MG TABLET 17.2 MG PO (21:34)
[2023-06-11] MEDS: ATORVASTATIN 20 MG TABLET 80 MG PO (21:34)
[2023-06-12] VITALS: BP 139/66; PULSE 85; RESP 16; TEMP 36.4; O2SAT 96
[2023-06-12 03:31] VITALS: BP 128/73; PULSE 80; RESP 18; TEMP 36; O2SAT 97
[2023-06-12] MEDS: CARBIDOPA-LEVODOPA 25/100 TABLET 1.5 EACH PO ×2 (04:37→10:25)
[2023-06-12] MEDS: ENTACAPONE 200 MG TABLET PO ×2 (04:37→10:25)
[2023-06-12] MEDS: PRAMIPEXOLE 0.25 MG TABLET PO ×2 (04:38→10:25)
[2023-06-12] MEDS: LEVOTHYROXINE 50 MCG TABLET PO (05:03)
[2023-06-12 08:00] VITALS: BP 115/72; PULSE 73; RESP 16; TEMP 36.3; O2SAT 98
[2023-06-12 08:50] VITALS: O2SAT 98
[2023-06-12] MEDS: APIXABAN 5 MG TABLET PO (08:50)
[2023-06-12] MEDS: HYDROCORTISONE 10 MG TABLET 5 MG PO (08:50)
--- NOTE | 2023-06-12 10:15 | P.DS_ITS ---
History of Present Illness History of Present Illness Date Patient Seen: 06/12/23 Time Patient Seen: 10:15 Chief complaint: just doesn't feel right, dizzy Narrative: The pt is a 68 yo with a hx of Parkinson's and a-fib who went to work today without any complaints but when he went back to his office to take his Sinemet he lost all memory and was found by a co-worker in his running car in [place] with his foot on the brake. He does not remember about a half an hour of time. He states he felt dizzy and generalized weakness and drove to the ER. In the ER, he started noticing weakness in his right leg. During my interview and exam, he could onlylift his leg a few inches above the bed. He denies any numbness or pain in the right leg, he has never had anything like this before. He denies any recent illness, takes his home meds very faithfully, no recent fevers, chills, N/V/D. He denies any confusion, trouble with speech, vision, FUENTES, Discharge Providers Provider Date of admission: 06/10/23 21:10 Discharge Date: 06/12/23 Primary care physician: Cadence Keene PA-C Consults: 06/10/23 21:28 Consult to Occupational Therapy Evaluate & Treat Comment: Physician Instructions: Evaluate and treat Consult to Physical Therapy Evaluate & Treat Comment: Physician Instructions: Evaluate and Treat Discharge provider: Valente Acrher DO Summary Hospital Course Discharge Diagnosis: 1. R leg weakness 2. Parkinson's disease 3. Chronic atrial fibrillation on anticoagulation. 4. Essential hypertension, chronic, present on admission 5. Hyperlipidemia, chronic, present on admission 6. GERD, chronic, present on admission 7. Morbid obesity as evidence by BMI of 44.5, acute on chronic, present on admission Hospital Course: 68 M with PMH of afib on eliquis, parkinson's disease, HTN, HLD, GERD who presented with acute right leg weakness. MRI was negative. He did report treatment for gout a few days prior. 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 The etiology for his weakness is not entirely clear. He he no saddle anesthesia and with improvement, along with prior abdominal CT imaging, spinal pathologies seemed less likely. MRI was negative as noted above. It is possible this was related to his gouty flare recently as it was on the same side, but he had no knee / hip swelling. It is possible this is musculoskeletal injury as well or related to his parkinson's (? spasticity). He is recommended to follow up as an outpatient with neurology if symptoms continue despite continued outpatient therapies. And he should follow up with primary care in 1-2 weeks to check on symptoms at that time. Time Spent with Patient Time spent: Greater than 30 minutes Exam Vital Signs (past 8 hours): - 06/12/23 03:31 06/12/23 08:00 Temperature 96.8 F L 97.3 F L Pulse Rate 80 73 Respiratory Rate 18 16 Blood Pressure 128/73 115/72 Pulse Oximetry 97 98 Oxygen Flow Rate 0 Oxygen Delivery Method Room Air Oxygen Flow Rate 0 Narrative Exam Narrative: Gen: awake, alert, no acute distress CV: irregularly irregular with normal rate, no murmurs Pulm: CTA B/L Abd: S NT ND Ext: no edema or joint effusions Neuro: R leg weak but +5/5, sensation intact to light touch bilaterally. 4 Objective Labs 06/11/23 05:14 06/11/23 05:14 [facility] Medical History Hyperlipidemia BMI 45.0-49.9, adult Left renal mass Aortic stenosis Essential hypertension Atrial fibrillation Parkinsons disease Surgical History (Updated 11/25/21 @ 04:31 by JHONNY Hadley) History of right hip replacement History of left radical nephrectomy Family History (Updated 11/25/21 @ 04:32 by JHONNY Hadley) Mother Congestive heart failure Sister Cancer Brother AIDS Social History household members: spouse Smoking Status: Former smoker alcohol intake: never Discharge Plan Discharge Plan Patient Disposition: Home Provider Discharge Comment: You were admitted to the hospital with R leg weakness, unclear what this is exactly due to. MRI negative, previous imaging with no concerning spinal disease, and you continue to improve. Continue therapy as an outpatient. If no improvement recommend follow up with neurology for further evaluation. Recommend PCP follow up to review hospitalization in 1-2 weeks ideally. No medication changes are recommended at this time. Discharge orders & Medications Prescriptions: Continued carbidopa-levodopa 25-100 mg Tablet 1.5 tab PO QID Patient Comments: according to patient and spouse he takes this medication at 0430, 10;30, 1430, 1730. entacapone 200 mg Tablet 200 mg PO 5XD Rx Instructions: pt takes this medication at 0430, 1030, 1430, 1730 and 2130 pramipexole 0.25 mg Tablet 0.25 mg PO 5XD Rx Instructions: pt take this medication at 0430m, 1030, 1430 and 1730, 2130 rasagiline 1 mg Tablet 1 mg PO DAILY Patient Comments: py takes this medication at 0430 lisinopril 20 mg Tablet 5 mg PO BEDTIME atorvastatin 40 mg Tablet 80 mg PO BEDTIME sertraline 25 mg Tablet 25 mg PO BEDTIME Eliquis 5 mg Tablet 5 mg PO BID Rx Instructions: pt had stopped medication prior to surgery hydrocortisone 5 mg Tablet 10 mg PO BID metoprolol succinate 50 mg tablet extended release 24 hr 50 mg PO BEDTIME levothyroxine 75 mcg tablet 50 mcg PO QAM Patient Comments: TAKE 1 TABLET BY MOUTH ONCE DAILY carbidopa-levodopa 25-100 mg tablet 3 tab PO BEDTIME Follow up/Referrals: Cadence Keene, PAJohnny [Primary Care Provider] - Diet/Activity/Treatments Diet: Diet as Tolerated and Regular Activity: As tolerated, no restrictions. Visit Report/Discharge Packet Stand Alone Forms: Patient Portal/API, Stroke Signs & Symptoms Discharge Data Primary Care Provider: Cadence Keene Attending Provider: Nithin Dickinson Admit Date/Time: 06/10/23 21:10 Quality VTE Deep Vein Thrombosis/Pulmonary Embolism Present on Admission: No
--- NOTE | 2023-06-12 10:50 | PT.IPTN ---
Physical Therapy Treatment Note M2 PT-IP Current Condition Start: 06/11/23 17:00 Freq: NEEDED Status: Active Protocol: Document 06/11/23 14:00 AB (Rec: 06/11/23 17:21 AB [id number]) Physical Therapy Current Condition Current Condition Evaluation Date 06/11/23 Treatment Diagnosis syncope; R sided weakness; difficulty in walking Onset Date 06/10/23 M3 PT-IP Subjective Start: 06/11/23 17:00 Freq: NEEDED Status: Active Protocol: Document 06/12/23 12:05 TS (Rec: 06/12/23 12:13 TS [id number]) Subjective Physical Therapy Visit Type Type Treatment Note Visit Start Time 10:50 Visit Stop Time 11:15 Number of API PRODUCT MANAGER Visits 1 Physical Therapy Visit Comments Patient Comments Pt found resting in chair, spouse in room. pt reports feeling much better today and RLE is stronger. Pt is agreeable to PT. M4 PT-IP Mobility and Gait Start: 06/11/23 17:00 Freq: NEEDED Status: Active Protocol: Document 06/12/23 12:05 TS (Rec: 06/12/23 12:13 TS [id number]) PT-Transfer Assessment Sit to and From Stand Sit to and from Stand Standby Assistance Equipment Transfer Assistive Device Gait Belt,Front Wheeled Walker Orthotic/Prosthetic Devices or Brace: No Comments Mobility Comments STS from chair SBA with FWW. Pt ambulated ~200' with FWW and ~200 with SPC with step thru gait. He performed steps x3 with B handrails, x3 with SPC and single rail and x3 with SPC only. pt ambulated back to room. Was left in chair, all needs met. Gait Assessment Gait Gait Assistance Required: Standby Assistance Distance (Feet) 400 Able to Maintain Weight Bearing Status Yes During Gait Assistive Devices Assistive Device Gait Belt,Straight Cane,Front Wheeled Walker Orthotic/Prosthetic Devices or Brace: No Gait Deviations General Gait Pattern Decreased Stride Length, Decreased Feet Clearance Factors Limiting Gait Function Factors Limiting Gait Function Decreased Activity Tolerance, Decreased Strength,Poor Balance,Poor Safety Awareness Comments Gait Comments See mobility comments Stair Climbing Assessment Evaluation Level of Assist On Stairs Contact Guard Assistance,1 Person Assistance Devices Stair Climbing Assistive Devices Straight Cane,Left Railing, Right Railing Technique/Endurance Stair Climbing Direction Ascend and Descend Stair Climbing Technique Step to Step Number of Steps Climbed 9 Comments Stair Climbing Comments Spouse assisted CGA for stairs . PT-Balance Assessment Sitting Balance and Reactions Static Sitting Balance Ability Good Dynamic Sitting Balance Ability Good Standing Balance and Reactions Static Standing Balance Ability Good Dynamic Standing Balance Ability Fair Device Used FWW M5 PT-IP Objective Assessments Start: 06/11/23 17:00 Freq: NEEDED Status: Active Protocol: Document 06/11/23 14:00 AB (Rec: 06/11/23 17:21 AB [id number]) Orientation Orientation/Cognition Level of Alertness Alert Orientation Name,Place,Situation Language Function Ability No Deficits Noted Safety Awareness Decreased Safety Awareness Memory Description No Deficits Noted Gross Range of Motion Lower Extremity ROM Assessment Within Functional Limits Strength Lower Extremity Strength Assessment Right Impaired Hip 3+/5 Knee 3+/5 Sensation Assessment Sensation Gross Sensation Right UE Impaired Sensation Description Numbness Comments Sensation Comments c/o R UE (elbow to fingers) numbness Muscle Tone Muscle Tone WNL Yes M6 PT-IP Treatment Start: 06/11/23 17:00 Freq: NEEDED Status: Active Protocol: Document 06/12/23 12:05 TS (Rec: 06/12/23 12:13 TS [id number]) Physical Therapy Treatment Education Education Provided Safety M7 PT-IP Assessment and Plan Start: 06/11/23 17:00 Freq: NEEDED Status: Active Protocol: Document 06/12/23 12:05 TS (Rec: 06/12/23 12:13 TS [id number]) PT Summary Assessment and Plan Potential Rehabilitation Potential Fair Summary Impairments Pain,ROM,Strength,Balance, Coordination,Sensation,Tone, Cognition,Bed Mobility, Transfers,Gait,Activity Tolerance Progress Towards Goals Progressing Toward Goals Assessment Summary Mychal is making good progress with his mobility. He is SBA for STS and with gait. He progressed his gait to ~ 200 with FWW and ~200 with SPC . He performed steps x9 with handrails and use of SPC. Spouse was instructed in and performed donning of gait belt , gait and stair training. PT is recommending home with assist and outpatient PT. Goals Bed Mobility Goal Independent Transfer Goal Independent,Front Wheeled Walker Gait Goal Independent,Front Wheel Walker Gait Distance 250 Other Goals improve transfers and ambulation using LRAD >300 ft mod i up/down 4 steps B rails mod I up/down 3 steps using SPC SBA Days to Meet Goals 10 Frequency of Treatment Frequency Of Treatment Once a Day Treatment Plan Physical Therapy Treatment Plan Bed Mobility Training,Transfer Training,Gait Training, Therapeutic Exercise,Balance Retraining,Discharge Planning, Hot or Cold Pack,Neuromuscular Re-ed,Coordination Retraining ,Manual Therapy Precautions Other Precautions falls Recommendations To Nursing Amount of Assist Needed Standby Assistance Discharge Recommendations PT Discharge Recommendations Home with Assistance, Outpatient PT Transportation Needs at Discharge Private Vehicle
--- NOTE | 2023-06-12 12:24 | OT.IP.EVAL ---
Past Medical History (Last Reviewed 06/10/23 @ 23:13 by Nithin Galo DO) Aortic stenosis Atrial fibrillation BMI 45.0-49.9, adult Essential hypertension Hyperlipidemia Left renal mass Parkinsons disease Surgical History (Last Updated 11/25/21 @ 04:31 by Susan Lyons, [facility]) History of left radical nephrectomy History of right hip replacement Occupational Therapy Inpatient Evaluation/Re-Eval M1 PT/OT-IP Prior Functional Status Start: 06/11/23 17:00 Freq: NEEDED Status: Active Protocol: Document 06/12/23 14:06 CGR (Rec: 06/12/23 14:23 CGR [id number]) Medical Review Prior Functional Status Medical History Reviewed Yes Communication able to make needs known Mobility and Gait pt stated that he was modified independent with all mobilities and ambulation without AD but occasionally uses a 4WW for outdoor mobility Activities of Daily Living and IADL's Pt states that he was IND in all aDLs but that LB dressing was difficult and he has a special way that he does it at home leaning on the wall and bringin his foot onto the chair. Social History Household Members spouse Living Arrangements RV Number of Floors (Floors) One Floor Number of Stairs To Enter/Railing? 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 Additional Social History Comment pt stated that he works at the [employer] and has a flat bed M2 OT-IP Current Condition Start: 06/12/23 14:05 Freq: Status: Active Protocol: Document 06/12/23 14:06 CGR (Rec: 06/12/23 14:23 CGR [id number]) Occupational Therapy Current Condition Current Condition Evaluation Date 06/12/23 Treatment Diagnosis RLE weakness, MRI neg Diagnosis Onset Date 06/10/23 M3 OT- IP Subjective and Pain Start: 06/12/23 14:05 Freq: Status: Active Protocol: Document 06/12/23 14:06 CGR (Rec: 06/12/23 14:23 CGR [id number]) OT- Subjective Occupational Therapy Visit Type Type Initial Evaluation Visit Start Time 12:00 Visit Stop Time 12:24 Notes Pt states he feels like he is at his baseline but would still like to be checked out by OT. OT Pain Assessment Pain When Pain Assessed At Rest Pain Present Pain Present Denied Pain M4 OT- IP ADL's Start: 06/12/23 14:05 Freq: Status: Active Protocol: Document 06/12/23 14:06 CGR (Rec: 06/12/23 14:23 CGR [id number]) OT [id number] General Evaluation Self-Feeding Ability Independent Comments OT Self-Feeding Comments Pt left eating lunch at end of session. OT ADL-Grooming Comments OT Grooming Comments Pt already performed OT ADL-Oral Care Comments Oral Care Comments Pt states he performed with IND earlier OT ADL-Dressing Comments OT Dressing Comments Pt is dressed for discharge but states that he needed help with his socks where as he is typically able to do them at home. OT ADL-Toileting Comments OT Toileting Comments not performed OT ADL-Bathing Comments OT Bathing Comments not performed M5 OT- IP IADL's Start: 06/12/23 14:05 Freq: Status: Active Protocol: Document 06/12/23 14:06 CGR (Rec: 06/12/23 14:23 [id number] OT-Instrumental Activities of Daily Living Deficits IADL Deficits Identified No Deficits Home Safety Awareness Awareness of Need for Assistance at Home Good Awareness Ability to Problem Solve Emergency Able to Problem Solve Situations Home Safety Comments Pt has some cognitive deficits and is aware of them. His assists. 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 OT- IP Functional Cognition Start: 06/12/23 14:05 Freq: Status: Active Protocol: Document 06/12/23 14:06 CGR (Rec: 06/12/23 14:23 CGR [id number]) Cognitive Factors Limiting Selfcare Function Cognitive Ability Level of Alertness Alert,Confusional State Patient Orientation Name,Age,Birthday,Month,Date, Year,Day of Week,Place, Situation Attention Span Ability Capable of Focused Attention, Capable of Sustained Attention Ability to Follow Commands Able to Follow One Step Commands with Increased Time, Able to Follow One Step Commands with Repetition Cognitive Tests SLUMS Pt participated in the SLUMS on this date earning a . He states this is consistent with the cognitive testing that he does with his neurologist. Pt had difficulty with simple subtraction, recalled 4 of the 5 objects for short term memory, was able to perform immediate memory tasks with 3 numbers but not 4 numbers, and missed one of the 4 listening comprehension questions. Cognitive Comments Cognitive Assessment Comments Per pt, his cognitive assessment is consistent with his baseline testing with his neurologist. OT- Vision and Hearing OT- Hearing Assessment OT- Hearing Assessment WFL OT- Vision Assessment Visual Acuity Glasses All The Time Visual Attentiveness WFL Occular Pursuits WFL Visual Convergence WFL Vision Assessment Comments Pt wears bifocals M7 OT- IP Mobility and Balance Start: 06/12/23 14:05 Freq: Status: Active Protocol: Document 06/12/23 14:06 CGR (Rec: 06/12/23 14:23 CGR [id number]) OT-Transfer Assessment Sit to and From Stand Sit to and from Stand Standby Assistance Transfers Transfer Ability Standby Assistance Technique Transfer Destination Chair Transfer Technique Stand Step Pivot Devices Transfer Assistive Devices None Comments Mobility Comments Pt was standing with nursing when OT entered. OT- Gait Assessment Gait Gait Assistance Required: Independent Assistive Devices Assistive Device None OT- Balance Assessment Sitting Balance and Reactions Static Sitting Balance Ability Good Dynamic Sitting Balance Ability Good M8 OT- IP Objective Assessments Start: 06/12/23 14:05 Freq: Status: Active Protocol: Document 06/12/23 14:06 CGR (Rec: 06/12/23 14:23 CGR [id number]) OT Gross Range of Motion Upper Extremity Range of Motion Assessment Within Functional Limits OT Strength Upper Extremity Strength Assessment Within Functional Limits Comments Strength Comments Pt states that his RUE is weaker than his left at baseline. This is consistent in todays testing. LUE 4+/5 and RUE is 4/5 with slight delay. Pt states his RUE also has a bit of a tremmor. OT- Coordination Assessment Upper Extremity Finger to Nose Test Within Functional Limits Finger Tapping Test Right UE Impaired Comments Coordination Comments PT is slow with fine motor tasks and needs to visualize his right hand to perform OT-Muscle Tone Assessment Muscle Tone WNL Yes OT Sensation Assessment Edema Edema Absent M9 OT- IP Assessment and Plan Start: 06/12/23 14:05 Freq: Status: Active Protocol: Document 06/12/23 14:06 CGR (Rec: 06/12/23 14:23 CGR [id number]) OT Summary Assessment and Plan Potential Rehabilitation Potential Excellent Analytic Complexity at Evaluation Moderate Summary OT Impairments Strength,Coordination, Functional Cognition,Activity Tolerance Progress Towards Goals Progressing Toward Goals Assessment Summary Pt presents as a moderate complexity evaluation s/p admit for RUE weakness. MRI and CT negative and pt appears to be at or close to his baseline at this time. No further OT needs. Frequency of Treatment Frequency Of Treatment Discharge Discharge Recommendations OT Discharge Recommendations Home with Assistance Transportation Needs at Discharge Private Vehicle
--- NOTE | 2023-06-12 14:21 | CM.DPNOTE ---
DC Note Met w/patient to review discharge plan. Patient eager to return home, indp with cane or walker as needed. Denies needs from this CM team. Home w/family to assist as needed, close follow up recommended. Cleared by therapy for this plan. JERRY
== END 2023-06-12 13:05 | disposition home or self-care (01) ==
LOC: ED 21:07 → AC 21:11
PROVIDERS: Emergency Medicine; Admitting Provider Internal Medicine; Emergency Provider Emergency Medicine; PCP Physician Assistant; Referring Provider Emergency Medicine; Visit Provider Internal Medicine
DX: R42 Dizziness and giddiness (principal); R53.1 Weakness; R41.3 Other amnesia; G20.A1 Parkinson's disease without dyskinesia, without mention of fluctuations; I48.20 Chronic atrial fibrillation, unspecified; I10 Essential (primary) hypertension; E66.01 Morbid (severe) obesity due to excess calories; Z68.41 Body mass index [BMI] 40.0-44.9, adult; Z79.01 Long term (current) use of anticoagulants
CPT/HCPCS: 0241U; 36415; 70450; 70496; 70498; 70551; 71045; 80053; 80061; 81003; 82550; 83690; 83735; 84484; 85025; 85610; 85730; 93005; 96360; 97116; 97129; 97162; 97166; 97530; 99284; G0378; Q9967

== ENCOUNTER 2024-03-14 19:54 | Emergency (ER) | payer MEDICARE, OTHER, SELFPAY ==
[2023-06-10 21:21] VITALS: BMI 44.4
[2024-03-14] VITALS (7 sets, daily range): BP systolic 106–144; BP diastolic 72–78; PULSE 74–93; RESP 12–16; TEMP 36.7; O2SAT 95–98; BMI 41.0
--- NOTE | 2024-03-14 20:08 | DI.CT.S_ITS ---
PROCEDURE: CT CERVICAL SPINE WO CON INDICATIONS: Head injury, on eliquis TECHNIQUE: Noncontrast 3 mm thick sections acquired from the skull base to the T4 level. Sagittal and coronal reformats were then constructed. For radiation dose reduction, the following was used: automated exposure control, adjustment of mA and/or kV according to patient size. COMPARISON: None. FINDINGS: Image quality: Diagnostic Bones: No fractures or dislocations. Visualized superior ribs are intact. Soft tissues: Prevertebral soft tissues are normal in thickness. No paravertebral hematomas. No apical pneumothoraces. IMPRESSION: No acute displaced fracture or traumatic subluxation. Approved by: Graciela Keane M.D.,Ph.D. on 03/14/2024 at 22:38
--- NOTE | 2024-03-14 20:08 | DI.RAD.S_ITS ---
PROCEDURE: XR CHEST 1V INDICATIONS: Head injury, on eliquis TECHNIQUE: One view of the chest was acquired. COMPARISON: [facility], CR, XR CHEST 1V, 06/10/2023, 16:58. FINDINGS: Surgical changes and devices: None. Lungs and pleura: Lungs are clear. No pleural effusions or pneumothorax. Mediastinum: Mediastinal contours appear normal. Heart size is normal. Bones and chest wall: No suspicious bony lesions. Overlying soft tissues appear unremarkable. IMPRESSION: No acute cardiopulmonary abnormality is seen. Approved by: Graciela Keane M.D.,Ph.D. on 03/14/2024 at 22:38
--- NOTE | 2024-03-14 20:08 | DI.CT.S_ITS ---
PROCEDURE: CT HEAD/BRAIN WO CON INDICATIONS: Head injury, on eliquis TECHNIQUE: Noncontrast 4.5 mm thick angled axial sections acquired from the foramen magnum to the vertex, with coronal and sagittal reformats. For radiation dose reduction, the following was used: automated exposure control, adjustment of mA and/or kV according to patient size. COMPARISON: [facility], CT, CT HEAD/BRAIN WO CON, 06/10/2023, 18:13. FINDINGS: Image quality: Diagnostic. CSF spaces: Basal cisterns are patent. No extra-axial fluid collections. Ventricles are normal in size and shape. Brain: No midline shift. No intracranial masses or hemorrhage. Vazquez-white matter interface is normal. Skull and face: Calvarium and visualized facial bones are intact, without suspicious lesions. Sinuses: Visualized sinuses and mastoids are clear. IMPRESSION: No acute intracranial pathology. Approved by: Graciela Keane M.D.,Ph.D. on 03/14/2024 at 22:36
--- NOTE | 2024-03-14 21:02 | ED.HEATRA ---
HPI - Head Injury General Chief complaint: Head Injury Stated complaint: 300lb log fell on back of head neck shoulder Time Seen by Provider: 03/14/24 20:55 Source: patient and family Mode of arrival: Family Vehicle Limitations: no limitations History of Present Illness HPI Narrative: 68-year-old male with history of chronic atrial fibrillation on Eliquis, Parkinson's, history of [place]'s although patient states he stopped his hydrocortisone a month ago, hypothyroidism, hypertension who presents with complaint of a large log falling on the back of his head. 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 Patient states has not had headache and neck pain since then. Noticed with a little bit of blurriness on the left eye but has not improved. Denies any numbness tingling or new weakness. Denies any pain in his thoracic or lumbar spine. Denies any chest pain or shortness of breath. No abdominal back or flank pain. No new numbness tingling or weakness of his extremities. He does have Parkinson's at baseline but no new changes. No bowel or bladder incontinence. Patient states this occurred about 230 in the afternoon symptoms have increased over time. He did have a dose of Tylenol at 3:00 p.m. Related Data Home Medications Medication Instructions Recorded Confirmed apixaban 5 mg tablet (Eliquis) 5 mg PO BID 11/25/21 06/10/23 atorvastatin 40 mg tablet 80 mg PO BEDTIME 11/25/21 06/10/23 carbidopa 25 mg-levodopa 100 mg 1.5 tab PO QID 11/25/21 06/10/23 tablet entacapone 200 mg tablet 200 mg PO 5XD 11/25/21 06/10/23 lisinopril 20 mg tablet 5 mg PO BEDTIME 11/25/21 06/10/23 pramipexole 0.25 mg tablet 0.25 mg PO 5XD 11/25/21 06/10/23 rasagiline 1 mg tablet 1 mg PO DAILY 11/25/21 06/10/23 sertraline 25 mg tablet 25 mg PO BEDTIME 11/25/21 06/10/23 carbidopa 25 mg-levodopa 100 mg 3 tab PO BEDTIME 06/10/23 06/10/23 tablet hydrocortisone 5 mg tablet 10 mg PO BID 06/10/23 06/10/23 levothyroxine 75 mcg tablet 50 mcg PO QAM 06/10/23 06/10/23 metoprolol succinate 50 mg 50 mg PO BEDTIME 06/10/23 06/10/23 tablet,extended release 24 hr Previous Rx's Medication Instructions Recorded oxycodone 5 mg tablet 5 mg PO Q6H PRN pain #10 tabs 03/14/24 Allergies Allergy/AdvReac Type Severity Reaction Status Date / Time Penicillins [PENICILLINS] Allergy Severe Anaphylaxis Verified 06/10/23 16:40 Review of Systems Review of Systems ROS Unobtainable: All systems reviewed & are unremarkable except as noted in HPI and below Patient History Medical History Hyperlipidemia BMI 45.0-49.9, adult Left renal mass Aortic stenosis Essential hypertension Atrial fibrillation Parkinsons disease Surgical History History of right hip replacement History of left radical nephrectomy Family History Mother Congestive heart failure Sister Cancer Brother AIDS Social History household members: spouse Smoking Status: Former smoker alcohol intake: never Smoking Status: Former smoker tobacco type: cigarettes alcohol intake frequency: 0-2 drinks per day Exam Narrative Exam Narrative: GEN: C-collar in ED. Patient appears in mild distress. HEAD: No evidence of trauma, no raccoon/Gagnon sign. NECK: Nontender, painless range of motion, trachea midline Positive for nexus criteria, patient has some generalized midline tenderness, no distracting injury, no altered mental status no neuro deficit no recent ETOH. EYES: PERRLA, EOMI ENT: External inspection normal, trachea is midline, TM's are normal no hemotypanum, Nares are clear, no septal hematoma, no dental or oral injury, airway is normal and with normal occlusion, No bony tenderness RESP: Chest is nontender and has symmetric movement, no ecchymosis, breath sounds are normal no crackles, wheezes or rales CVS: Heart sounds are normal, no murmur noted, No JVD. ABG/GI: Nontender, soft, normal bowel sounds, no distention, no organomegaly, pelvic rock is negative NEURO: Oriented AOx3, neuro is grossly intact, sensation and motor is normal all 4 extremities moving, cranial nerves II through XII are intact, GCS is 15 PSYCH: Normal mood and affect SKIN: Intact, warm and dry, no crepitus and without decubitus BACK: No CVA tenderness, no vertebral tenderness, no step-off's, no crepitus EXT: Atraumatic, hips are nontender, no pedal edema, normal color and temperature, normal range of motion of extremities with normal tendon exam, 2+ pulses in all four extremities Initial Vital Signs Initial Vital Signs: Vital Signs Temperature 98.1 F 03/14/24 19:55 Pulse Rate 74 03/14/24 19:55 Respiratory Rate 16 03/14/24 19:55 Blood Pressure 133/75 03/14/24 19:55 Pulse Oximetry 97 03/14/24 19:55 Oxygen Delivery Method Room Air 03/14/24 19:55 Course Orders Ordered: ED Orders 03/14/24 20:08 CT cervical spine wo con Stat CT head/brain wo con Stat XR chest 1V Stat Discontinued Medications Acetaminophen (Acetaminophen 325 Mg Tablet) 975 mg PO NOW ONE Stop: 03/14/24 21:27 Last Admin: 03/14/24 21:37 Dose: 975 mg Documented By: [facility] Vital Signs Vital signs: Vital Signs - 8 hr 03/14/24 19:55 03/14/24 21:15 03/14/24 21:30 Temperature 98.1 F Pulse Rate 74 82 93 H Respiratory Rate 16 Blood Pressure 133/75 Pulse Oximetry 97 95 95 Oxygen Delivery Method Room Air 03/14/24 21:44 03/14/24 21:44 03/14/24 22:00 Temperature Pulse Rate 90 83 Respiratory Rate 12 Blood Pressure 144/78 H Pulse Oximetry 98 97 Oxygen Delivery Method Room Air 03/14/24 22:30 03/14/24 23:03 Temperature Pulse Rate 89 87 Respiratory Rate Blood Pressure 121/72 106/72 Pulse Oximetry 96 97 Oxygen Delivery Method Room Air Room Air MDM - Head Injury Lab Data Labs: Point of Care Testing Glucose POC 99 MDM Narrative Medical decision making narrative: 68-year-old male on Eliquis had a large wooden log hit him on back of head knocked him down. No loss of consciousness patient was anticoagulated does complain of headache and neck pain. Notes he is more comfortable in the C-collar but states he thinks that is more because it prevents him from twitching and moving from his Parkinson's. Patient was given a dose of Tylenol here in the department he defers anything stronger. No obvious abrasions or lacerations posterior scalp or head. Patient has been ambulating without issue since his injury. Head CT is negative for acute intracranial pathology CT cervical spine shows no acute displaced fracture or traumatic subluxation Chest x-ray shows no acute change Patient did have some improvement with acetaminophen here in the department. Suspect has a little bit of a concussion. No acute neurologic changes patient's C-spine was cleared. Patient felt a little bit more comfortable with the C-collar he states it helped to keep him from twitching. Was removed here in the department. Discussed could use a soft collar to brace but is not required. We will give a short course of pain medication with return precautions questions answered. Discharge Plan Departure Patient Disposition: Home Clinical Impression: Concussion, Cervical strain Instructions: Concussion Activity Restrictions/Additional Instructions: Follow up as needed. I suspect you may have little bit of a mild concussion. Your imaging of your head, cervical spine and your chest x-ray did not show any acute changes today. You can continue with the acetaminophen up to a 1000 mg every 6 hours as needed for pain. Can take 1 tablet every 6 hours of oxycodone as needed for pain. This medication can make you sleepy do not drive, perform hazardous activities or make any major decisions while taking it. This medication will make you constipated please take a stool softener once to twice daily until stools are soft and regular. Prescription sent to [facility] in [place]. Please return for severe headaches, rapidly worsening neck pain, new numbness, weakness or difficulty with movement, new chest pain or shortness of breath, persistent vomiting, changes to mentation or confusion or other new or concerning changes Prescriptions: New oxycodone 5 mg tablet 5 mg PO Q6H PRN (Reason: pain) Qty: 10 0RF No Action carbidopa-levodopa 25-100 mg Tablet 1.5 tab PO QID Patient Comments: according to patient and spouse he takes this medication at 0430, 10;30, 1430, 1730. entacapone 200 mg Tablet 200 mg PO 5XD Rx Instructions: pt takes this medication at 0430, 1030, 1430, 1730 and 2130 pramipexole 0.25 mg Tablet 0.25 mg PO 5XD Rx Instructions: pt take this medication at 0430m, 1030, 1430 and 1730, 2130 rasagiline 1 mg Tablet 1 mg PO DAILY Patient Comments: py takes this medication at 0430 lisinopril 20 mg Tablet 5 mg PO BEDTIME atorvastatin 40 mg Tablet 80 mg PO BEDTIME sertraline 25 mg Tablet 25 mg PO BEDTIME Eliquis 5 mg Tablet 5 mg PO BID Rx Instructions: pt had stopped medication prior to surgery hydrocortisone 5 mg Tablet 10 mg PO BID metoprolol succinate 50 mg tablet extended release 24 hr 50 mg PO BEDTIME levothyroxine 75 mcg tablet 50 mcg PO QAM Patient Comments: TAKE 1 TABLET BY MOUTH ONCE DAILY carbidopa-levodopa 25-100 mg tablet 3 tab PO BEDTIME Referrals: Cadence Keene PA-C [Primary Care Provider] - Stand Alone Forms: Patient Portal/API/Survey
[2024-03-14] MEDS: ACETAMINOPHEN 325 MG TABLET 975 MG PO (21:37)
--- NOTE | 2024-03-14 21:39 | PC.NURSE ---
Pt reports waxy feeling in left eye; states vision feels impaired in left field of vision. Pupils equal, round, and reactive. No trauma or abnormalities noted in eyes.
== END 2024-03-14 23:03 | disposition home or self-care (01) ==
PROVIDERS: Emergency Provider Emergency Medicine; PCP Physician Assistant
DX: S06.0XAA Concussion with loss of consciousness status unknown, initial encounter (principal); S16.1XXA Strain of muscle, fascia and tendon at neck level, initial encounter; W22.8XXA Striking against or struck by other objects, initial encounter
CPT/HCPCS: 70450; 71045; 72125; 99284